=== PATIENT | female | born 1955 | race Caucasian/White ===

== ENCOUNTER 2022-08-01 09:55 | Emergency (ER) | payer OTHER ==
--- OUTSIDE RECORDS SUMMARY | 2022-08-01 10:03 | XMS REPORT | Continuity of Care Document ---
:1955 Author Organization [facility] t Address [address] [place] [address] [address] [place] [address] Care Team Providers Name Role Phone KENYATTA MATIAS Primary Care Physician Unavailable KENYATTA MATIAS Attending Clinician Unavailable GAGANDEEP CORLEY Attending Clinician Unavailable AMARIS RAY Attending Clinician Unavailable UNKNOWN, ATTENDING Attending Clinician Unavailable FOG_Halamicek_Mar_NP Attending Clinician Unavailable Kenyatta Watson Attending Clinician Anneliese Rowe MD Attending Clinician DONG ESTRADA Attending Clinician Unavailable Jade Macias PT Attending Clinician Unavailable Dong Estrada MD Attending Clinician Azalia Aguero PTA Attending Clinician Unavailable Doctor Unassigned, [place] Attending Clinician Unavailable Arnaud Pardo Attending Clinician ARNAUD HEAD Attending Clinician Unavailable Lab, Ang - Db Attending Clinician Unavailable Geraldine Weller MD Attending Clinician Higinio Ward RN Attending Clinician Unavailable NANDO ROMERO Attending Clinician Unavailable GONZALO PIERSON Attending Clinician Unavailable MARISOL PAEZ Attending Clinician Unavailable VERONICA JAY III Attending Clinician Unavailable Veronica Jay MD Attending Clinician GONZALO PIERSON Attending Clinician Unavailable TESS BOGGS Attending Clinician Unavailable LINDA IVEY Attending Clinician Unavailable YAN POWELL Attending Clinician Unavailable DAVE WEIR Attending Clinician Unavailable GAUTAM DOMINGUEZ Attending Clinician Unavailable JESIKA MORIN Attending Clinician Unavailable SAMANTHA CLARKE Attending Clinician Unavailable MONSE CR Attending Clinician Unavailable DHIRAJ GREENWOOD Attending Clinician Unavailable ROB LAYTON Attending Clinician Unavailable BIBIANA LUU Attending Clinician Unavailable ABEL STAUFFER Attending Clinician Unavailable YASIR MCGEE Attending Clinician Unavailable FOG_Halamicek_Mar_NP Admitting Clinician Unavailable GONZALO PIERSON Admitting Clinician Unavailable Payers Payer Name Policy Type Policy Number Effective Date [facility]piration Date [facility] [id number] 0631-10-27 2021 ASSISTANCE PROGRAM 00:00:00 00:00:00 MEDICARE PART A [id number] 2021 \\T\\ B 00:00:00 COMMERCIAL [id number] 2021 NON-CONTRACT 00:00:00 GENERIC MEDICARE PART A [id number] \\T\\ B - MEDICARE MEDIGAP - MUTUAL [id number] OF [place] ZZZ-PPO [id number] 2008 00:00:00 MEDIGAP-GENERIC - [id number] 2020 GENERIC PAYOR 00:00:00 [place] [place] [id number] 2021 2024 00:00:00 00:00:00 MEDICARE B-[place]: [id number] 2021 Vortal 00:00:00 [place] [id number] 2021 (MEDICARE 00:00:00 SUPPLEMENT) COVID19 [facility] [id number] 2020 2020 00:00:00 00:00:00 MEDICARE A B [id number] 2020 00:00:00 SANJEEV [id number] 2021 00:00:00 [place] [id number] [id number] 2021 PLANNING INDIGENT 00:00:00 00:00:00 Problems Condition Condition Condition Status Onset Resolution Last Treating Co mments Source Name Details Category Date Date Treatment Clinician Date Acute pain Acute pain Disease Active U nivers of right of right 2-15 ity of shoulder shoulder 00:00: [place] 00 Medical Branch Need for Need for Disease Active Unive rs hepatitis hepatitis 12 ity of C C 00:00: [place] screening screening 00 [facility] test test Branch Encounter Encounter Disease Active Uni vers to to 02-08 ity of establish establish 00:00: [facility] care care 00 Medical Branch Cervicalgi Cervicalgi Disease Active U nivers a a 07 ity of 00:00: [place] 00 Medical Branch Chronic Chronic Disease Active Univers left left 02-08 ity of shoulder shoulder 00:00: [place] pain pain 00 Medical Branch Parathyroi Parathyroi Disease Active U nivers d disease d disease 02-08 ity of 00:00: [place] 00 Medical Branch Psoriatic Psoriatic Disease Active Uni vers arthritis arthritis 02-08 ity of 00:00: [place] 00 Medical Branch Status Status Disease Active [facility] post post 1-10 College parathyroi parathyroi 00:00: of dectomy dectomy 00 Medicin e Primary Primary Disease Active 2020-[address] [facility] hyperparat hyperparat 2-28 Heidi kes hyroidism hyroidism 00:00: [facility] ian 00 Center Primary Primary Disease Active 2020-06 [facility] hyperparat hyperparat 2-08 Co llege hyroidism hyroidism 00:00: of 00 Medicin e Arthritis Arthritis Disease Active 2020-06 [facility] 2-08 College 00:00: of 00 Medicin e Osteoporos Osteoporos Disease Active 2020-06 B julius is with is with 2-08 College current current 00:00: of pathologic pathologic 00 Me dicin al al e fracture fracture Renal Renal Disease Active [facility] stone stone 6-09 Health 00:00: 00 Chronic Chronic Disease Active [facility] pain of pain of 5-17 Health right knee right knee 00:00: 00 Weakness Weakness Disease Active Harri s of lower of lower -17 Health extremity extremity 00:00: 00 Impaired Impaired Disease Active [facility] mobility mobility -17 Health 00:00: 00 Post-menop Post-menop Disease Active H arris ausal ausal 03 Health osteoporos osteoporos 00:00: is is 00 Kidney Kidney Disease Active 2017-06 Overview: Alvin stone stone 2-19 [facility] 00:00: g of this 00 note might be different from the original. Added automatic ally from request for surgery [id number] Encounter Encounter Disease Active 2017-06 César ris for for 07-02 Health methotrexa methotrexa 00:00: te te 00 monitoring monitoring Cervical Cervical Disease Active Harri s radiculopa radiculopa 09-20 He alth thy at C8 thy at C8 00:00: 00 Neck pain Neck pain Disease Active César ris 08-30 Health 00:00: 00 Anxiety Anxiety Disease Active 2015-06 Alvin 06-06 Health 00:00: 00 Fracture Fracture Disease Active Harri s of distal of distal 5-14 Heal th femur femur 00:00: 00 Osteoarthr Osteoarthr Disease Recurre Alvin itis itis nce 6-13 Health 00:00: 00 Psoriatic Psoriatic Disease Recurre Le[place] rris arthritis arthritis nce 2-28 Heal th 00:00: 00 Osteoporos Osteoporos Disease Recurre Esquivel is is nce 2-28 Health 00:00: 00 Kidney Kidney Disease Active 2012-06 [facility] stones stones 0-05 College 00:00: of 00 Medicin e Vitamin D Vitamin D Disease Recurre Le[place] rris deficiency deficiency nce 4-25 He alth 00:00: 00 Flank pain Flank pain Disease Active 2010-06 H arris 2-09 Health 00:00: 00 Psoriasis Psoriasis Disease Recurre 2010-06 Le[place] rris nce 0-26 Health 00:00: 00 Depression Depression Disease Recurre 2010-06 [facility] nce 0-26 Health 00:00: 00 Osteoporos Osteoporos Disease Active B aylor is, is, 3-25 College postmenopa postmenopa 00:00: of usal usal 00 Medicin e GYNECOLOGI GYNECOLOGI Disease Active 2007-06 B ayanthony IAN IAN 2-23 [place] EXAMINATIO EXAMINATIO 00:00: of N, ROUTINE N, ROUTINE 00 Me dicin e SCREENING SCREENING Disease Active 2006-06 [place] anthony MAMMOGRAM MAMMOGRAM 06-18 Kandy ege NEC NEC 00:00: of 00 Medicin e SCREENING SCREENING Disease Active 2006-06 [place] anthony FOR FOR 06-18 College MALIGNANT MALIGNANT 00:00: of NEOPLASM, NEOPLASM, 00 Medi zeeshan CERVIX CERVIX e VAGINAL VAGINAL Disease Active 2006-06 [facility] BLEEDING, BLEEDING, 06-18 Kandy ege ABNORMAL ABNORMAL 00:00: of 00 Medicin e Acute left Acute left Disease Active H arris flank pain flank pain He alth Hydronephr Hydronephr Disease Active H arris osis with osis with Heal th urinary urinary obstructio obstructio n due to n due to renal renal calculus calculus Allergies, Adverse Reactions, Alerts Allergy Allergy Status Severity Reaction(s) Onset Inactive Treating Comm ents Source Name Type Date Date Clinician ALENDRON DRUG Active High Hives Univers ATE-BRYANT 7-20 ity of MIN D3 00:00: [place] 00 [facility] HYDROXYC DRUG Active High Hives Univers HLOROQUI INGREDI 7-20 ity of NE 00:00: [place] 00 [facility] Alendron Propensi Active Hives Univer s ate-Bryant ty to 7-20 ity of min D3 adverse 00:00: [place] reaction 00 [facility] Hydroxyc Propensi Active Hives Univer s hloroqui ty to 7-20 ity of ne adverse 00:00: [place] reaction 00 [facility] Branch HYDROXYC Allergy Active High Hives 2020-[address] [facility]OQUI 2-27 [facility] CODEINE Allergy Active Nausea 2020-[address] [facility] [address] 2-27 [facility] 00:[facility] Medical 00 Center Codeine Propensi Active Nausea Only 2020-[address] ty to 2-27 [facility] adverse 00:00: Medical reaction 00 [place] [facility] Hydroxyc Propensi Active Hives, 2020-[address] [facility] hloroqui ty to Swelling 2-27 [facility] ne adverse 00:00: Medical reaction 00 [place] [facility] Codeine Propensi Active Itching Upset [facility] Hcl ty to 8 stomach Health adverse 00:00: reaction 00 s to drug Hydroxyc Propensi Active Angioedema, 2010-06 H arris hloroqui ty to Swelling 0-26 Health ne adverse 00:00: reaction 00 s to drug Ge Propensi Active 2006-06 PLAQUENIL [employer] Uncoded ty to 115 . College Allergy adverse 00:00: SHOCKlip of reaction 00 swelling Medici n s e Family History Family Member Diagnosis Comments Start Date Stop Date Source Natural brother Cancer [facility] He alth Natural father Heart [facility]a l[facility] Natural mother Arthritis [facility] Natural mother Hypertension [facility] Natural mother Other [facility] Natural sister Hypertension [facility] Social History Social Habit Start Date Stop Date Quantity Comments Source History SDOH IPV [facility] Sexual Abuse History SDOH IPV [facility] Fear History SDOH IPV [facility] Emotional History SDOH [facility] Drinks History SDOH [facility] Alcohol Binge Medical [facility] Exposure to 2022-07-09 2022-07-19 Not sure [facility] SARS-CoV-2 00:00:00 08:34:00 [place] Medical (event) Branch Tobacco use and 2021-05-30 2021-05-[address] [facility] Heidi kes exposure 00:00:00 00:00:00 Medical Center History SDOH 2021-05-30 2021-05-[address] [facility] Alcohol Frequency 00:00:00 00:00:00 Medical Center Alcohol intake 2021-04-25 2021-04-25 Current drinker [facility] 00:00:00 00:00:00 of alcohol (finding) History SDOH IPV 2020-11-10 2020-11-10 2 [facility] Physical Abuse 00:00:00 00:00:00 History SDOH Food 2018-06-27 2018-06-27 1 [facility] Health Worry 00:00:00 00:00:00 History SDOH Food 2018-06-27 2018-06-27 1 [facility] Health Scarcity 00:00:00 00:00:00 Alcohol Comment 2011-03-29 2011-03-29 Very rarely (<1 [facility] is Health 00:00:00 00:00:00 drink per year) Sex Ass[birth year] At 1955-05-211956-05-21 Alvin loya 00:00:00 00:00:00 Smoking Status Start Date Stop Date Source Tobacco smoking consumption [facility] Medical unknown Branch Never smoked tobacco [facility] Medications Ordered Filled Start Stop Current Ordering Indication Dosage Frequency Signature Comments Components Source Medication Medication Date Date Medication? Clinician (SIG) Name Name methylPREDN 2023-0 Yes [id number] Take by Univers ISolone 2-15 mouth ity of (MEDROL, 00:00: SEE-INSTRU Ger[place] as AASHISH,) 4 mg 00 CTIONS. Medica l tablets follow Branch package directions tiZANidine 2023-0 Yes [id number] 2mg Take 1 U nivers 2 mg 2-15 capsule by ity of capsule 00:00: mouth in [place] the Medical morning Branch and 1 capsule at noon and 1 capsule in the evening. methylPREDN 2023-0 Yes [id number] Take by Univers ISolone 2-15 mouth ity of (MEDROL, 00:00: SEE-INSTRU Gerhard as AASHISH,) 4 mg 00 CTIONS. Medica l tablets follow Branch package directions tiZANidine 2023-0 Yes [id number] 2mg Take 1 U nivers 2 mg 2-15 capsule by ity of capsule 00:00: mouth in [place] [address] the Medical morning Branch and 1 capsule at noon and 1 capsule in the evening. methylPREDN 2023-0 Yes [id number] Take by Univers ISolone 2-15 mouth ity of (MEDROL, 00:00: SEE-INSTRU Ger[place] as AASHISH,) 4 mg 00 CTIONS. Medica l tablets follow Branch package directions tiZANidine 2023-0 Yes [id number] 2mg Take 1 U nivers 2 mg 2-15 capsule by ity of capsule 00:00: mouth in [place] [address] the Medical morning Branch and 1 capsule at noon and 1 capsule in the evening. methylPREDN 2023-0 Yes [id number] Take by Univers ISolone 2-15 mouth ity of (MEDROL, 00:00: SEE-INSTRU Ger[place] as AASHISH,) 4 mg 00 CTIONS. Medica l tablets follow Branch package directions tiZANidine 2023-0 Yes [id number] 2mg Take 1 U nivers 2 mg 2-15 capsule by ity of capsule 00:00: mouth in [place] [address] the Medical morning Branch and 1 capsule at noon and 1 capsule in the evening. methylPREDN 2022-0 2022- No [id number] Take by Univers ISolone 2-15 02-15 mouth ity of (MEDROL, 00:00: 00:[place] AASHISH[place] 4 mg 00 :00 CTIONS for Med ical tablets 5 days. Branch follow package directions tiZANidine 2022-0 2022- No [id number] 2mg Take 1 Univers 2 mg 2-15 02-15 capsule by ity of capsule 00:00: 00:00 mouth in [place] 00 :00 the Medical morning Branch and 1 capsule at noon and 1 capsule in the evening. tiZANidine 2022-0 3- No [id number] 2mg Take 1 Univers 2 mg 2-15 02-15 capsule by ity of capsule 00:00: 00:00 mouth in [place] 00 :00 the Medical morning Branch and 1 capsule at noon and 1 capsule in the evening. methylPREDN 2022-0 2022- No [id number] Take by Univers ISolone 2-15 02-15 mouth ity of (MEDROL, 00:00: 00:[place] AASH[place] 4 mg 00 :00 CTIONS. Medica l tablets follow Branch package directions methylPREDN 2022-0 2022- No [id number] Take by [employer] ISolone 2-15 02-15 mouth ity of (MEDROL, 00:00: 00:[place] AASHISH[place] 4 mg 00 :00 CTIONS for Med ical tablets 5 days. Branch follow package directions tiZANidine 3-0 2022- No [id number] 2mg Take 1 Univers 2 mg 2-15 02-15 capsule by ity of capsule 00:00: 00:00 mouth in [place] 00 :00 the Medical morning Branch and 1 capsule at noon and 1 capsule in the evening. tiZANidine 2023-0 2023- No [id number] 2mg Take 1 Univers 2 mg 2-15 02-15 capsule by ity of capsule 00:00: 00:00 mouth in [place] 00 :00 the Medical morning Branch and 1 capsule at noon and 1 capsule in the evening. methylPREDN 2022-0 2022- No [id number] Take by Univers ISolone 2-15 02-15 mouth ity of (MEDROL, 00:00: 00:00 [place] AASHISH[place] 4 mg 00 :00 CTIONS. Medica l tablets follow Branch package directions Apremilast Yes 30mg Take 30 mg B aylor (OTEZLA) 30 1-24 by mouth [place] e[place] MG TABS 10:36: two times of 27 daily. Medicin e Multiple Yes Take by [facility] Vitamins-Mi 1-24 mouth. Nuzhat uribe nerals 10:36: of (MULTIPLE 27 Medicin VITAMINS/WO e MENS OR) Calcium-Mag Yes Take by [facility] nesium-Bryant 1-24 mouth. Nuzhat e min D 10:36: of (CITRACAL 27 Medicin CALCIUM+D e OR) Naproxen Yes 1{tbl} Take 1 [facility] Sodium 220 1-24 Tablet by [place] MG TABS 10:36: mouth as of 27 needed. Medicin e ciprofloxac Yes [id number] 2[drp] Place 2 Univers in HCl 0.3 9-23 [id number] Drops in ity of % opthalmic 00:00: both eyes [place] drops 00 every 4 Medical (four) Branch hours. ciprofloxac Yes [id number] 2[drp] Place 2 Univers in HCl 0.3 9-23 [id number] Drops in ity of % opthalmic 00:00: both eyes [place] drops 00 every 4 Medical (four) Branch hours. ciprofloxac Yes [id number] 2[drp] Place 2 Univers in HCl 0.3 9-23 [id number] Drops in ity of % opthalmic 00:00: both eyes [place] drops 00 every 4 Medical (four) Branch hours. ciprofloxac Yes [id number] 2[drp] Place 2 Univers in HCl 0.3 9-23 [id number] Drops in ity of % opthalmic 00:00: both eyes [place] drops 00 every 4 Medical (four) Branch hours. ciprofloxac Yes [id number] 2[drp] Place 2 Univers in HCl 0.3 9-23 [id number] Drops in ity of % opthalmic 00:00: both eyes [place] drops 00 every 4 Medical (four) Branch hours. ciprofloxac Yes [id number] 2[drp] Place 2 Univers in HCl 0.3 9-23 [id number] Drops in ity of % opthalmic 00:00: both eyes [place] drops 00 every 4 Medical (four) Branch hours. ciprofloxac Yes [id number] 2[drp] Place 2 Univers in HCl 0.3 9-23 [id number] Drops in ity of % opthalmic 00:00: both eyes [place] drops 00 every 4 Medical (four) Branch hours. ciprofloxac Yes [id number] 2[drp] Place 2 Univers in HCl 0.3 9-23 [id number] Drops in ity of % opthalmic 00:00: both eyes [place] drops 00 every 4 Medical (four) Branch hours. ciprofloxac Yes [id number] 2[drp] Place 2 Univers in HCl 0.3 9-23 [id number] Drops in ity of % opthalmic 00:00: both eyes [place] drops 00 every 4 Medical (four) Branch hours. ciprofloxac 2022- No [id number] 2[drp] Place 2 Univers in HCl 0.3 9-23 02-15 [id number] Drops in it y of % opthalmic 00:00: 00:00 both eyes [place] drops 00 :00 every 4 Medical (four) Branch hours. ciprofloxac 2022- No [id number] 2[drp] Place 2 Univers in HCl 0.3 9-23 02-15 [id number] Drops in it y of % opthalmic 00:00: 00:00 both eyes [place] drops 00 :00 every 4 Medical (four) Branch hours. ciprofloxac 2021- No [id number] 2[drp] Place 2 Univers in HCl 0.3 9-23 09-23 [id number] Drops in it y of % opthalmic 00:00: 00:00 both eyes [place] drops 00 :00 every 4 Medical (four) Branch hours for 7 days. Apremilast Yes 30mg Take 30 mg B aylor (OTEZLA) 30 7-26 by mouth Kandy ege MG TABS 12:58: two times of 43 daily. Medicin e Multiple Yes Take by [facility] Vitamins-Mi 7- mouth. Colleg e nerals 12:58: of (MULTIPLE 27 Medicin VITAMINS/WO e MENS OR) Calcium-Mag 0 Yes Take by [place] anthony nesium-Bryant 7- mouth. Colleg e min D 12:58: of (CITRACAL 27 Medicin CALCIUM+D e OR) Naproxen Yes 1{tbl} Take 1 [facility] Sodium 220 7-26 Tablet by Kandy ege MG TABS 12:58: mouth as of 27 needed. Medicin e Apremilast Yes 30mg Take 30 mg B ayl[place] (OTEZLA) 30 7- by mouth [place]andy ege MG TABS 10:52: two times of 17 daily. Medicin e Multiple Yes Take by [facility] Vitamins-Mi 7- mouth. Colleg e nerals 10:52: of (MULTIPLE 17 Medicin VITAMINS/WO e MENS OR) Calcium-Mag Yes Take by [place] anthony nesium-Bryant 7- mouth. Colleg e min D 10:52: of (CITRACAL 17 Medicin CALCIUM+D e OR) Naproxen Yes 1{tbl} Take 1 [facility] Sodium 220 7-26 Tablet by Kandy ege MG TABS 10:52: mouth as of 17 needed. Medicin e Apremilast Yes As [facility] 10 & 20 & 7-26 instructed Kandy ege 30 MG TBPK 00:00: of 00 Medicin e Apremilast 0 Yes As [facility] 10 & 20 & 7-26 instructed Kandy ege 30 MG TBPK 00:00: of 00 Medicin e bromphenira Yes [id number] 5mL Take 5 mL Univers mine-pseudo 7-20 by mouth 4 it y of ephedrine-D 00:00: (four[place] M (BROMFED 00 times Medical DM) 2-30-10 daily as Bran ch mg/5 mL needed for syrup Congestion /Allergies or Cough. fluticasone Yes [id number] 2{spray Use 2 Univers propionate 7-20 } Sprays in ity of 50 00:00: each [place] mcg/actuati 00 nostril in Me dical on nasal the Branch spray morning. bromphenira 2021-0 Yes [id number] 5mL Take 5 mL Univers mine-pseudo 7-20 by mouth 4 it y of ephedrine-D 00:00: (four[place] M (BROMFED 00 times Medical DM) 2-30-10 daily as Bran ch mg/5 mL needed for syrup Congestion /Allergies or Cough. fluticasone 2021-0 Yes [id number] 2{spray Use 2 Univers propionate 7-20 } Sprays in ity of 50 00:00: each [place] mcg/actuati 00 nostril in Me dical on nasal the Branch spray morning. bromphenira 2021-0 Yes [id number] 5mL Take 5 mL Univers mine-pseudo 7-20 by mouth 4 it y of ephedrine-D 00:00: (four[place] M (BROMFED 00 times Medical DM) 2-30-10 daily as Bran ch mg/5 mL needed for syrup Congestion /Allergies or Cough. fluticasone 2021-0 Yes [id number] 2{spray Use 2 Univers propionate 7-20 } Sprays in ity of 50 00:00: each [place] mcg/actuati 00 nostril in Me dical on nasal the Branch spray morning. bromphenira 2021-0 Yes [id number] 5mL Take 5 mL Univers mine-pseudo 7-20 by mouth 4 it y of ephedrine-D 00:00: (four[place] M (BROMFED 00 times Medical DM) 2-30-10 daily as Bran ch mg/5 mL needed for syrup Congestion /Allergies or Cough. fluticasone 2021-0 Yes [id number] 2{spray Use 2 Univers propionate 7-20 } Sprays in ity of 50 00:00: each [place] mcg/actuati 00 nostril in Me dical on nasal the Branch spray morning. bromphenira 2021-0 Yes [id number] 5mL Take 5 mL Univers mine-pseudo 7-20 by mouth 4 it y of ephedrine-D 00:00: (four) [place] M (BROMFED 00 times Medical DM) 2-30-10 daily as Bran ch mg/5 mL needed for syrup Congestion /Allergies or Cough. fluticasone 2021-0 Yes [id number] 2{spray Use 2 Univers propionate 7-20 } Sprays in ity of 50 00:00: each [place] mcg/actuati 00 nostril in Me dical on nasal the Branch spray morning. bromphenira 2021-0 Yes [id number] 5mL Take 5 mL Univers mine-pseudo 7-20 by mouth 4 it y of ephedrine-D 00:00: (four) [place] M (BROMFED 00 times Medical DM) 2-30-10 daily as Bran ch mg/5 mL needed for syrup Congestion /Allergies or Cough. fluticasone 2021-0 Yes [id number] 2{spray Use 2 Univers propionate 7-20 } Sprays in ity of 50 00:00: each [place] mcg/actuati 00 nostril in Me dical on nasal the Branch spray morning. bromphenira 2021-0 Yes [id number] 5mL Take 5 mL Univers mine-pseudo 7-20 by mouth 4 it y of ephedrine-D 00:00: (four[place] M (BROMFED 00 times Medical DM) 2-30-10 daily as Bran ch mg/5 mL needed for syrup Congestion /Allergies or Cough. fluticasone 2021-0 Yes [id number] 2{spray Use 2 Univers propionate 7-20 } Sprays in ity of 50 00:00: each [place] mcg/actuati 00 nostril in Me dical on nasal the Branch spray morning. bromphenira 2021-0 Yes [id number] 5mL Take 5 mL Univers mine-pseudo 7-20 by mouth 4 it y of ephedrine-D 00:00: (four) [place] M (BROMFED 00 times Medical DM) 2-30-10 daily as Bran ch mg/5 mL needed for syrup Congestion /Allergies or Cough. fluticasone 2021-0 Yes [id number] 2{spray Use 2 Univers propionate 7-20 } Sprays in ity of 50 00:00: each [place] mcg/actuati 00 nostril in Me dical on nasal the Branch spray morning. bromphenira 2021-0 Yes [id number] 5mL Take 5 mL Univers mine-pseudo 7-20 by mouth 4 it y of ephedrine-D 00:00: (four) [place] M (BROMFED 00 times Medical DM) 2-30-10 daily as Bran ch mg/5 mL needed for syrup Congestion /Allergies or Cough. fluticasone 0 Yes [id number] 2{spray Use 2 Univers propionate 7-20 } Sprays in ity of 50 00:00: each [place] mcg/actuati 00 nostril in Me dical on nasal the Branch spray morning. bromphenira 0 Yes [id number] 5mL Take 5 mL Univers mine-pseudo 7-20 by mouth 4 it y of ephedrine-D 00:00: (four) [place] M (BROMFED 00 times Medical DM) 2-30-10 daily as Bran ch mg/5 mL needed for syrup Congestion /Allergies or Cough. fluticasone Yes [id number] 2{spray Use 2 Univers propionate 7-20 } Sprays in ity of 50 00:00: each [place] mcg/actuati 00 nostril in Me dical on nasal the Branch spray morning. bromphenira Yes [id number] 5mL Take 5 mL Univers mine-pseudo 7-20 by mouth 4 it y of ephedrine-D 00:00: (four[place] M (BROMFED 00 times Medical DM) 2-30-10 daily as Bran ch mg/5 mL needed for syrup Congestion /Allergies or Cough. fluticasone Yes [id number] 2{spray Use 2 Univers propionate 7-20 } Sprays in ity of 50 00:00: each [place] mcg/actuati 00 nostril in Me dical on nasal the Branch spray morning. bromphenira 2022- No [id number] 5mL Take 5 mL Univers mine-pseudo 7-20 02-15 by mouth 4 i ty of ephedrine-D 00:00: 00:00 (four) [place] M (BROMFED 00 :00 times Medical DM) 2-30-10 daily as Bran ch mg/5 mL needed for syrup Congestion /Allergies or Cough. fluticasone 0 2022- No [id number] 2{spray Use 2 Univers propionate 7-20 02-15 } Sprays in ity of 50 00:00: 00:00 each [place] mcg/actuati 00 :00 nostril in Me dical on nasal the Branch spray morning. bromphenira 2022- No [id number] 5mL Take 5 mL Univers mine-pseudo 12-21 by mouth 4 i ty of ephedrine-D 00:00: 00:00 (four) [place] M (BROMFED 00 :00 times Medical DM) 2-30-10 daily as Bran ch mg/5 mL needed for syrup Congestion /Allergies or Cough. fluticasone 2022- No [id number] 2{spray Use 2 Univers propionate 12-21 } Sprays in ity of 50 00:00: 00:00 each [place] mcg/actuati 00 :00 nostril in Me dical on nasal the Branch spray morning. Naproxen Yes 1{tbl} Take 1 [facility] Sodium 4-25 Tablet by [place] (NOLVIA) 220 09:22: mouth as of MG TABS 52 needed. Medicin e Apremilast Yes 30mg Take 30 mg B ayl[place] (OTEZLA) 30 4-25 by mouth [place]andy ege MG TABS 09:22: two times of 20 daily. Medicin e Multiple Yes Take by [facility] Vitamins-Mi 4-25 mouth. Nuzhat e nerals 09:22: of (MULTIPLE 20 Medicin VITAMINS/WO e MENS OR) Calcium-Mag Yes Take by [facility] nesium-Bryant 4-25 mouth. Nuzhat e min D 09:22: of (CITRACAL 20 Medicin CALCIUM+D e OR) Apremilast Yes 30mg Take 30 mg [facility] (OTEZLA) 30 1-31 by mouth Kandy ege MG TABS 09:27: two times of 25 daily. Medicin e Apremilast 0 Yes 30mg Take 30 mg [facility] (OTEZLA) 30 1-31 by mouth K[facility] e[facility] MG TABS 09:27: two times of 25 daily. Medicin e Apremilast 0 Yes 30mg Take 30 mg [facility] (OTEZLA) 30 1-10 by mouth Akndy ege MG TABS 11:19: two times of 41 daily. Medicin e Apremilast 0 Yes 30mg Take 30 mg [facility] (OTEZLA) 30 1-10 by mouth Kandy ege MG TABS 11:19: two times of 41 daily. Medicin e apremilast 2020-06 Yes Q.5D Take by [facility] (Otezla[facility] 30 2-29 mouth 2 [facility] Tab 17:17: (two) Medical 01 times Center daily. calcium 2020-06 Yes Take [address] [facility] carbonate 2-28 mg or 600 [facility] (OS-IAN) 00:00: mg calcium Med ical 600 mg 00 tablet Center calcium twice (1,500 mg) daily. TO Tab BE PICKED UP OVER THE COUNTER. THIS IS NOT A PRESCRIPTI ON.. tramadol 2020-06- No 1{tbl} Take 1 [facility] (ULTRAM) 50 -06-16 Tablet by [facility] llege MG tablet 00:00: 00:00 mouth of 00 :00 every 6 Medicin hours as e needed for Pain. ondansetron 2020-06- No 8mg 1 Tablet [facility] (ZOFRAN 08-01 every 8 College ODT) 8 mg 00:00: 00:00 hours as of disintegrat 00 :00 needed for Me dicin ing tablet Nausea. e tramadol 2020-06- No 1{tbl} Take 1 [facility] (ULTRAM) 50 -06-16 Tablet by Co llege MG tablet 00:00: 00:00 mouth of 00 :00 every 6 Medicin hours as e needed for Pain. ondansetron 2020-06- No 8mg 1 Tablet [facility] (ZOFRAN 08-01 every 8 College ODT) 8 mg 00:00: 00:00 hours as of disintegrat 00 :00 needed for Me dicin ing tablet Nausea. e traMADoL 2020-06 Yes Renal stone 50mg Take 1 [facility] (ULTRAM) 50 1-22 tablet by [facility] mg tablet 00:00: mouth 00 every 6 hours as needed for Pain. betamethaso 2020-06 Yes Fissure in Q.5D Apply to [facility] ne, 1-11 skin affected Health augmented 00:00: area 2 (DIPROLENE) 00 times 0.05 % daily. ointment apremilast 2020-06 Yes Psoriatic 30mg Q.5D Take 1 [facility] (OTEZLA) 30 0-15 arthritis tablet by Health mg tablet 00:00: mouth 2 00 times daily. apremilast 2020-06 Yes 15mg Take 15 mg U nivers 30 mg 0-15 by mouth ity of tablet 00:00: in the [place] morning Medical and 15 mg Branch in the evening. apremilast 2020-06 Yes 15mg Take 15 mg U nivers 30 mg 0-15 by mouth ity of tablet 00:00: in the [place] morning Medical and 15 mg Branch in the evening. apremilast 2020-06 Yes 15mg Take 15 mg U nivers 30 mg 0-15 by mouth ity of tablet 00:00: in the [place] morning Medical and 15 mg Branch in the evening. apremilast 2020-06 Yes 15mg Take 15 mg U nivers 30 mg 0-15 by mouth ity of tablet 00:00: in the [place] morning Medical and 15 mg Branch in the evening. apremilast 2020-06 Yes 15mg Take 15 mg U nivers 30 mg 0-15 by mouth ity of tablet 00:00: in the [place] morning Medical and 15 mg Branch in the evening. apremilast 2020-06 Yes 15mg Take 15 mg U nivers 30 mg 0-15 by mouth ity of tablet 00:00: in the [place] morning Medical and 15 mg Branch in the evening. apremilast 2020-06 Yes 15mg Take 15 mg U nivers 30 mg 0-15 by mouth ity of tablet 00:00: in the [place] morning Medical and 15 mg Branch in the evening. apremilast 2020-06 Yes 15mg Take 15 mg U nivers 30 mg 0-15 by mouth ity of tablet 00:00: in the [place] morning Medical and 15 mg Branch in the evening. apremilast 2020-06 Yes 15mg Take 15 mg U nivers 30 mg 0-15 by mouth ity of tablet 00:00: in the [place] morning Medical and 15 mg Branch in the evening. apremilast 2020-06 Yes 15mg Take 15 mg U nivers 30 mg 0-15 by mouth ity of tablet 00:00: in the [place] morning Medical and 15 mg Branch in the evening. apremilast 2020-06 Yes 15mg Take 15 mg U nivers 30 mg 0-15 by mouth ity of tablet 00:00: in the [place] morning Medical and 15 mg Branch in the evening. apremilast 2020-06 Yes 15mg Take 15 mg U nivers 30 mg 0-15 by mouth ity of tablet 00:00: in the [place] morning Medical and 15 mg Branch in the evening. apremilast 2020-06 Yes 15mg Take 15 mg U nivers 30 mg 0-15 by mouth ity of tablet 00:00: in the [place] morning Medical and 15 mg Branch in the evening. apremilast 2020-06 Yes 15mg Take 15 mg U nivers 30 mg 0-15 by mouth ity of tablet 00:00: in the [place] morning Medical and 15 mg Branch in the evening. apremilast 2020-06 Yes 15mg Take 15 mg U nivers 30 mg 0-15 by mouth ity of tablet 00:00: in the [place] morning Medical and 15 mg Branch in the evening. multivitami Yes 1{tbl} QD Take 1 León rris n tablet 8-23 tablet by [facility] 11:01: mouth 24 daily. CALCIUM Yes 1{tbl} Take 1 [facility] CARBONATE/V 8-23 tablet by [facility] ITAMIN D3 11:01: mouth 3 (CALCIUM 24 times 500 WITH D daily. OR) tamsulosin Yes Nephrolithi .4mg QD Take 1 [facility] (FLOMAX) 6-29 asis capsule by [facility] 0.4 mg 00:00: mouth extended 00 daily. release capsule polyethylen Yes [facility] Empty the [facility] e glycol 11-02 maintenance [facility] (MOVIPREP) 00:00: of 1 Pouch 100-7.5-2.6 00 A and 1 91 gram Pouch B PwPk kit into the container that comes with MoviPrep. Add lukewarm water to the Fill Line on the container. Drink as directed by your doctor.. lidocaine Yes Chronic 1{patch QD Apply 1 [facility] (LIDODERM) 3-12 pain of } Patch to He alth 5 % patch 00:00: right knee skin as 00 directed daily Leave patch(es) on for up to 12 hours, then 12 hours off.. polyethylen Yes Positive Add León rris e glycol 9-27 fecal [employer]) 00:00: occult drinking [id number] 00 blood test water to .74 -5.86 the fill gram oral xiomara (4 solution liters) and shake. Drink as directed by your doctor.. Magnesium 2021- No 1.745g Take 1.745 [facility] Citrate 6-11 01-13 g by mouth Colle ge 1.745 00:00: 00:00 once for 1 of GM/30ML 00 :00 dose. Take Medici n SOLN day before e xray Magnesium No 1.745g Take 1.745 [facility] Citrate 6-11 01-13 g by mouth Colle ge 1.745 00:00: 00:00 once for 1 of GM/30ML 00 :00 dose. Take Medici n SOLN day before e xray Immunizations Ordered Immunization Filled Immunization Date Status Commen ts Source Name Name Influenza, 2021-03-18 Completed [facility] Vaccine<FLUCELVAX>(Mu 00:00:00 lti-Dose) Pfizer Sars-cov-2 2021-02-25 Completed [facility] Vaccination 00:00:00 SARS-COV-2 COVID-19 2021-02-25 Completed Unive rsity of PFIZER VACCINE 00:00:[address] [facility] SARS-COV-2 COVID-19 2021-02-25 Completed Unive rsity of PFIZER VACCINE 00:00:[address] [facility] Pfizer Sars-cov-2 2020-08-04 Completed [facility] Vaccination 00:00:00 SARS-COV-2 COVID-19 2020-08-04 Completed Unive rsity of PFIZER VACCINE 00:00:[address] [facility] SARS-COV-2 COVID-19 2020-08-04 Completed Unive rsity of PFIZER VACCINE 00:00:[address] [facility] Pfizer Sars-cov-2 2020-06-23 Completed [facility] Vaccination 00:00:00 SARS-COV-2 COVID-19 2020-06-23 Completed Unive rsity of PFIZER VACCINE 00:00:[address] [facility] SARS-COV-2 COVID-19 2020-06-23 Completed Unive rsity of PFIZER VACCINE 00:00:[address] [facility] Influenza, 2019-03-28 Completed [facility] Injectable, 00:00:00 Quadrivalent, Preservative Free Influenza Vaccine, 2018-03-08 Completed [facility] Seasonal, Injectable 00:00:00 Pneumococcal 20 2017-08-01 Completed Universit y of Conjugate, PCV20 00:00:00 [facility] dical (Prevnar 20) Branch Pneumococcal 20 2017-08-01 Completed Universit y of Conjugate, PCV20 00:00:00 [facility] dical (Prevnar 20) Branch Pneumococcal 20 2017-08-01 Completed Universit y of Conjugate, PCV20 00:00:00 [facility] dical (Prevnar 20) Branch Pneumococcal 20 2017-08-01 Completed Universit y of Conjugate, PCV20 00:00:00 [facility] dical (Prevnar 20) Branch Pneumococcal 20 2017-08-01 Completed Universit y of Conjugate, PCV20 00:00:00 [facility] dical (Prevnar 20) Branch Pneumococcal 20 2017-08-01 Completed Universit y of Conjugate, PCV20 00:00:00 [facility] dical (Prevnar 20) Branch Pneumococcal 20 2017-08-01 Completed Universit y of Conjugate, PCV20 00:00:00 [facility] dical (Prevnar 20) Branch Pneumococcal 20 2017-08-01 Completed Universit y of Conjugate, PCV20 00:00:00 [facility] dical (Prevnar 20) Branch Pneumococcal 20 2017-08-01 Completed Universit y of Conjugate, PCV20 00:00:00 [facility] dical (Prevnar 20) Branch Pneumococcal 20 2017-08-01 Completed Universit y of Conjugate, PCV20 00:00:00 [place] [facility] (Prevnar 20) Branch Pneumococcal 20 2017-08-01 Completed Universit y of Conjugate, PCV20 00:00:00 [place] [facility] (Prevnar 20) Branch Pneumococcal 20 2017-08-01 Completed Universit y of Conjugate, PCV20 00:00:00 [place] [facility] (Prevnar 20) Branch Pneumococcal 20 2017-08-01 Completed Universit y of Conjugate, PCV20 00:00:00 [place] [facility] (Prevnar 20) Branch Pneumococcal 20 2017-08-01 Completed Universit y of Conjugate, PCV20 00:00:00 [place] [facility] (Prevnar 20) Branch Pneumococcal 20 2017-08-01 Completed Universit y of Conjugate, PCV20 00:00:00 [place] [facility] (Prevnar 20) Branch PPV 23 (Pneumococcal 2017-07-10 Completed [facility] Polysaccharide 23 00:00:00 Valent) Influenza Vaccine, 2017-05-18 Completed [facility] Seasonal, Injectable 00:00:00 Pneumococcal 13 2017-03-14 Completed Universit y of Conjugate, PCV13 00:00:00 [place] [facility] (Prevnar 13) Branch Pneumococcal 13 2017-03-14 Completed Universit y of Conjugate, PCV13 00:00:00 [place] [facility] (Prevnar 13) Branch Pneumococcal 13 2017-03-14 Completed Universit y of Conjugate, PCV13 00:00:00 [place] [facility] (Prevnar 13) Branch Pneumococcal 13 2017-03-14 Completed Universit y of Conjugate, PCV13 00:00:00 [place] [facility] (Prevnar 13) Branch Pneumococcal 13 2017-03-14 Completed Universit y of Conjugate, PCV13 00:00:00 [place] [facility] (Prevnar 13) Branch Pneumococcal 13 2017-03-14 Completed Universit y of Conjugate, PCV13 00:00:00 [place] [facility] (Prevnar 13) Branch Pneumococcal 13 2017-03-14 Completed Universit y of Conjugate, PCV13 00:00:00 [place] [facility] (Prevnar 13) Branch Pneumococcal 13 2017-03-14 Completed Universit y of Conjugate, PCV13 00:00:00 [place] [facility] (Prevnar 13) Branch Pneumococcal 13 2017-03-14 Completed Universit y of Conjugate, PCV13 00:00:00 [place] [facility] (Prevnar 13) Branch Pneumococcal 13 2017-03-14 Completed Universit y of Conjugate, PCV13 00:00:00 [place] [facility] (Prevnar 13) Branch Pneumococcal 13 2017-03-14 Completed Universit y of Conjugate, PCV13 00:00:00 [place] [facility] (Prevnar 13) Branch Pneumococcal 13 2017-03-14 Completed Universit y of Conjugate, PCV13 00:00:00 [place] [facility] (Prevnar 13) Branch Pneumococcal 13 2017-03-14 Completed Universit y of Conjugate, PCV13 00:00:00 [place] [facility] (Prevnar 13) Branch Pneumococcal 13 2017-03-14 Completed Universit y of Conjugate, PCV13 00:00:00 [place] [facility] (Prevnar 13) Branch Pneumococcal 13 2017-03-14 Completed Universit y of Conjugate, PCV13 00:00:00 [place] [facility] (Prevnar 13) Branch Herpes Zoster Vaccine 2017-03-05 Completed [facility] 00:00:00 PCV 13 (Pneumococcal 2017-03-05 Completed [facility] Conjugated 13 Valent) 00:00:00 Pneumococcal 13 2017-03-05 Completed Universit y of Conjugate, PCV13 00:00:00 [place] [facility] (Prevnar 13) Branch Pneumococcal 13 2017-03-05 Completed Universit y of Conjugate, PCV13 00:00:00 [place] [facility] (Prevnar 13) Branch Pneumococcal 13 2017-03-05 Completed Universit y of Conjugate, PCV13 00:00:00 [place] [facility] (Prevnar 13) Branch Pneumococcal 13 2017-03-05 Completed Universit y of Conjugate, PCV13 00:00:00 [place] [facility] (Prevnar 13) Branch Pneumococcal 13 2017-03-05 Completed Universit y of Conjugate, PCV13 00:00:00 [place] [facility] (Prevnar 13) Branch Pneumococcal 13 2017-03-05 Completed Universit y of Conjugate, PCV13 00:00:00 [place] [facility] (Prevnar 13) Branch Pneumococcal 13 2017-03-05 Completed Universit y of Conjugate, PCV13 00:00:00 [place] [facility] (Prevnar 13) Branch Pneumococcal 13 2017-03-05 Completed Universit y of Conjugate, PCV13 00:00:00 [place] [facility] (Prevnar 13) Branch Pneumococcal 13 2017-03-05 Completed Universit y of Conjugate, PCV13 00:00:00 [place] [facility] (Prevnar 13) Branch Pneumococcal 13 2017-03-05 Completed Universit y of Conjugate, PCV13 00:00:00 [place] [facility] (Prevnar 13) Branch Pneumococcal 13 2017-03-05 Completed Universit y of Conjugate, PCV13 00:00:00 [place] [facility] (Prevnar 13) Branch Pneumococcal 13 2017-03-05 Completed Universit y of Conjugate, PCV13 00:00:00 [place] [facility] (Prevnar 13) Branch Pneumococcal 13 2017-03-05 Completed Universit y of Conjugate, PCV13 00:00:00 [place] [facility] (Prevnar 13) Branch Pneumococcal 13 2017-03-05 Completed Universit y of Conjugate, PCV13 00:00:00 [place] [facility] (Prevnar 13) Branch Pneumococcal 13 2017-03-05 Completed Universit y of Conjugate, PCV13 00:00:00 [facility] (Prevnar 13) [place] Influenza Vaccine 2016-03-28 Completed [facility] 00:00:00 Influenza Vaccine 2015-03-31 Completed [facility] 00:00:00 TDAP 2015-02-03 Completed University of 00:00:00 [facility] TDAP 2015-02-03 Completed University of 00:00:00 [facility] TDAP 2015-02-03 Completed University of 00:00:00 [facility] TDAP 2015-02-03 Completed University of 00:00:00 [facility] TDAP 2015-02-03 Completed University of 00:00:00 [facility] TDAP 2015-02-03 Completed University of 00:00:00 [facility] TDAP 2015-02-03 Completed University of 00:00:00 [facility] TDAP 2015-02-03 Completed University of 00:00:00 [facility] TDAP 2015-02-03 Completed University of 00:00:00 [facility] TDAP 2015-02-03 Completed University of 00:00:00 [facility] TDAP 2015-02-03 Completed University of 00:00:00 [facility] TDAP 2015-02-03 Completed University of 00:00:00 [facility] TDAP 2015-02-03 Completed University of 00:00:00 [facility] TDAP 2015-02-03 Completed University of 00:00:00 [facility] TDAP 2015-02-03 Completed University of 00:00:00 [facility] Tdap Tetanus, 2014-10-15 Completed [facility] diphtheria, acellular 00:00:00 pertussis Vaccine Influenza Vaccine 2014-03-16 Completed [facility] 00:00:00 Influenza Vaccine 2013-04-02 Completed [facility] 00:00:00 PPD 2012-10-01 Completed [facility] 00:00:00 Influenza Vaccine 2012-02-21 Completed [facility] 00:00:00 Tdap Tetanus, 2011-10-18 Completed [facility] diphtheria, acellular 00:00:00 pertussis Vaccine Influenza Vaccine 2011-03-29 Completed [facility] 00:00:00 Influenza, Seasonal, 2010-03-04 Completed [facility] Injectable 00:00:00 Influenza (whole) 2010-03-04 Completed [facility] 00:00:00 of Medicine Influenza (whole) 2010-03-04 Completed [facility] 00:00:00 of Medicine Influenza (whole) 2010-03-04 Completed [facility] 00:00:00 of Medicine Influenza (whole) 2010-03-04 Completed [facility] 00:00:00 of Medicine Influenza (whole) 2010-03-04 Completed [facility] 00:00:00 of Medicine Influenza (whole) 2010-03-04 Completed [facility] 00:00:00 of Medicine Influenza (whole) 2010-03-04 Completed [facility] 00:00:00 of Medicine Influenza (whole) 2010-03-04 Completed [facility] 00:00:00 of Medicine Vital Signs Vital Name Observation Time Observation Value Comments Source Systolic blood 2022-07-19 14:31:00 111 mm[Hg] Univer sity of pressure [facility] Diastolic blood 2022-07-19 14:31:00 72 mm[Hg] Unive rsity of [facility] Heart rate 2022-07-19 14:31:00 73 /min [facility] ty [facility] Body temperature 2022-07-19 14:31:00 36.94 Christina Univ ersity of [facility] Body height 2022-07-19 14:31:00 161.3 cm Universi ty [facility] Body weight 2022-07-19 14:31:00 65.772 kg [facility] ty [facility] BMI 2022-07-19 14:31:00 25.28 kg/m2 [facility] Oxygen saturation in 2022-07-19 14:31:00 97 /min [facility] blood by [facility] Pulse oximetry Branch Systolic blood 2022-06-27 16:39:00 120 mm[Hg] [facility] Medicine Diastolic blood 2022-06-27 16:39:00 64 mm[Hg] [facility] Medicine Heart rate 2022-06-27 16:39:00 61 /min [facility] ollege of Medicine Body height 2022-06-27 16:39:00 162.6 cm [facility] ollege of Medicine Body weight 2022-06-27 16:39:00 67.586 kg [facility] ollege of Medicine BMI 2022-06-27 16:39:00 25.58 kg/m2 [facility] ollege of Medicine Systolic blood 2022-02-24 23:14:00 134 mm[Hg] Univer sity of pressure [place] [facility] Diastolic blood 2022-02-24 23:14:00 81 mm[Hg] Unive rsity of pressure [facility] Heart rate 2022-02-24 23:13:00 70 /min Universi ty [facility] [place] [facility] Body temperature 2022-02-24 23:13:00 36.89 Christina Univ ersity of [place] [facility] Respiratory rate 2022-02-24 23:13:00 18 /min Univ ersity of [place] [facility] Body height 2022-02-24 23:13:00 162.6 cm Universi ty [facility] [place] [facility] Body weight 2022-02-24 23:13:00 65 kg [facility]i [facility] [place] [facility] BMI 2022-02-24 23:13:00 24.60 kg/m2 [facility]i ty [facility] [place] [facility] Oxygen saturation in 2022-02-24 23:13:00 98 /min University of Arterial blood by [place] [employer] [facility] Pulse oximetry Branch Systolic blood 2022-02-13 13:29:00 128 mm[Hg] Univer sity of pressure [facility] Diastolic blood 2022-02-13 13:29:00 75 mm[Hg] Unive rsity of pressure [facility] Heart rate 2022-02-13 13:29:00 73 /min Universi ty [facility] [place] [facility] Body height 2022-02-13 13:29:00 162.6 cm [facility]i [facility] [place] [facility] Body weight 2022-02-13 13:29:00 66.225 kg [facility]i [facility] [place] [facility] BMI 2022-02-13 13:29:00 25.06 kg/m2 [facility] [place] [facility] Oxygen saturation in 2022-02-13 13:29:00 99 /min University of Arterial blood by [place] [employer] [facility] Pulse oximetry Branch Systolic blood 2021-12-27 17:59:00 115 mm[Hg] [facility] pressure Medicine Diastolic blood 2021-12-27 17:59:00 75 mm[Hg] [facility] pressure Medicine Heart rate 2021-12-27 17:59:00 67 /min [facility] Body temperature 2021-12-27 17:59:00 36.22 Christina [facility] Respiratory rate 2021-12-27 17:59:00 16 /min [facility] Body height 2021-12-27 17:59:00 162.6 cm [facility] ollege of [facility] Body weight 2021-12-27 17:59:00 63.05 kg [facility] C ollege of Medicine BMI 2021-12-27 17:59:00 23.86 kg/m2 [facility] ollege of [facility] Oxygen saturation in 2021-12-27 17:59:00 100 /min [facility] blood by [facility] Pulse oximetry Systolic blood 2021-12-27 15:50:00 118 mm[Hg] [facility] Medicine Diastolic blood 2021-12-27 15:50:00 72 mm[Hg] [facility] Medicine Heart rate 2021-12-27 15:50:00 68 /min [facility] ollege of Medicine Respiratory rate 2021-12-27 15:50:00 20 /min [facility] Body height 2021-12-27 15:50:00 162.6 cm [facility] ollege of [facility] Body weight 2021-12-27 15:50:00 63.05 kg [facility] ollege of Medicine BMI 2021-12-27 15:50:00 23.86 kg/m2 [facility] ollege of Medicine Systolic blood 2021-09-26 14:23:00 130 mm[Hg] [facility] Medicine Diastolic blood 2021-09-26 14:23:00 78 mm[Hg] [facility] Medicine Heart rate 2021-09-26 14:23:00 69 /min [facility] ollege of Medicine Respiratory rate 2021-09-26 14:23:00 16 /min [facility] Body height 2021-09-26 14:23:00 162.6 cm [facility] ollege of Medicine Body weight 2021-09-26 14:23:00 64.955 kg [facility] ollege of Medicine BMI 2021-09-26 14:23:00 24.58 kg/m2 [facility] ollege of Medicine Heart rate 2021-07-11 19:57:00 65 /min [facility] ollege of Medicine Respiratory rate 2021-07-11 19:57:00 16 /min [facility] Body height 2021-07-11 19:57:00 162.6 cm [facility] ollege of [facility] Body weight 2021-07-11 19:57:00 64.864 kg [facility] ollege of [facility] BMI 2021-07-11 19:57:00 24.55 kg/m2 [facility] ollege of [facility] Systolic blood 2021-07-11 19:57:00 133 mm[Hg] [facility] Medicine Diastolic blood 2021-07-11 19:57:00 75 mm[Hg] [facility] Medicine Systolic blood 2021-07-04 15:27:00 150 mm[Hg] [facility] Medicine Diastolic blood 2021-07-04 15:27:00 81 mm[Hg] [facility] Medicine Heart rate 2021-07-04 15:27:00 64 /min [facility] ollege of [facility] Body temperature 2021-07-04 15:27:00 36.67 Christina [facility] Respiratory rate 2021-07-04 15:27:00 18 /min [facility] Body height 2021-07-04 15:27:00 162.6 cm [facility] ollege of [facility] Body weight 2021-07-04 15:27:00 64.774 kg [facility] ollege of [facility] BMI 2021-07-04 15:27:00 24.51 [facility] Oxygen saturation in 2021-07-04 15:27:00 99 /min [facility] Arterial blood by [facility] Pulse oximetry Systolic blood 2021-06-16 15:40:00 139 mm[Hg] [facility] Medicine Diastolic blood 2021-06-16 15:40:00 81 mm[Hg] [facility] Medicine Heart rate 2021-06-16 15:40:00 67 /min [facility] ollege of Medicine Body height 2021-06-16 15:40:00 162.6 cm [facility] ollege of Medicine Body weight 2021-06-16 15:40:00 64.411 kg [facility] ollege of Medicine BMI 2021-06-16 15:40:00 24.37 kg/m2 [facility] Systolic blood 2021-06-13 17:14:00 150 mm[Hg] [facility] pressure Medicine Diastolic blood 2021-06-13 17:14:00 86 mm[Hg] [facility] Medicine Heart rate 2021-06-13 17:14:00 74 /min 98% [facility] Body temperature 2021-06-13 17:14:00 36.83 Christina [facility] Respiratory rate 2021-06-13 17:14:00 18 /min [facility] Body weight 2021-06-13 17:14:00 63.322 kg [facility] BMI 2021-06-13 17:14:00 23.96 kg/m2 [facility] WEIGHT 2021-05-31 08:39:00 64.5 kg HEIGHT 2021-05-31 08:39:00 162.6 cm HEIGHT 2021-05-30 13:46:00 161.3 cm WEIGHT 2021-05-30 13:46:00 62.596 kg WEIGHT 2021-05-31 08:39:00 64.5 kg HEIGHT 2021-05-31 08:39:00 162.6 cm HEIGHT 2021-05-30 13:46:00 161.3 cm WEIGHT 2021-05-30 13:46:00 62.596 kg Procedures Procedure Date / Time Performed Performing Clinician [facility] e CONSENT/REFUSAL FOR 2022-02-28 05:01:00 Doctor Unassigned, No Un [facility] DIAGNOSIS AND Name [facility] TREATMENT CBC WITH DIFF 2022-02-13 14:36:00 Kenyatta Matias [place] [facility] [place] [facility] POCT URINALYSIS 2021-06-16 00:00:00 Nando Romero [facility] randae of DIPSTICK Medicine Plan of Care Planned Activity Planned Date Details Comments Source Future Scheduled 2031-03-24 Screening for [facility] 00:00:00 malignant neoplasm of colon (procedure) [code = 377200413] Future Scheduled 2031-03-24 Screening for [facility] Test 00:00:00 malignant neoplasm of colon (procedure) [code = 021814570] Future Scheduled 2022-10-25 COMPREHENSIVE Expected: [facility] Test 00:00:00 METABOLIC PANEL 10/25/2022 of Medicine [code = 34964-9] (Approximate), Expires: 06/27/2023 Future Scheduled 2022-10-25 PTH INTACT [code = Expected: [employer] Test 00:00:00 2731-8] 10/25/2022 of Medicine (Approximate), Expires: 06/27/2023 Future Scheduled 2022-10-25 VITAMIN D 25 HYDROXY Expected: [employer] Test 00:00:00 [code = 1988-3] 10/25/2022 of Medicine (Approximate), Expires: 06/27/2023 Future Scheduled 2022-07-10 Imm Pneumococcal 65+ [facility] Test 00:00:00 (#3) [code = Imm Pneumococcal 65+ (#3)] Future Scheduled 2022-07-10 PNEUMOCOCCAL 65+ YRS [facility] Test 00:00:00 (2 - PPSV23 or Medical Cente r PCV20) [code = PNEUMOCOCCAL 65+ YRS (2 - PPSV23 or PCV20)] Future Scheduled 2022-06-29 PTH INTACT [code = Expected: [employer] Test 00:00:00 2731-8] 06/29/2022 of Medicine (Approximate), Expires: 12/27/2022 Future Scheduled 2022-06-29 BASIC METABOLIC Expected: [facility] Test 00:00:00 PANEL [code = 06/29/2022 of Medicine 22424-4] (Approximate), Expires: 12/27/2022 Future Scheduled 2022-06-29 VITAMIN D 25 HYDROXY Expected: [employer] Test 00:00:00 [code = 1989-3] 06/29/2022 of Medicine (Approximate), Expires: 12/27/2022 Future Scheduled 2022-06-29 ALBUMIN [code = Expected: [facility] Test 00:00:00 1751-7] 06/29/2022 of Medicine (Approximate), Expires: 12/27/2022 Future Scheduled 2022-06-27 Screening for [facility] Test 11:05:26 malignant neoplasm of Medici ne of colon (procedure) [code = 610288162] Future Scheduled 2022-06-27 BMI Follow Up Plan [employer] Test 11:05:26 [code = BMI Follow of Medici ne Up Plan] Future Scheduled 2022-06-27 Hepatitis C [facility] [employer] Test 11:05:26 screening of Medicine (procedure) [code = 993603122] Future Scheduled 2022-06-27 ZOSTER VACCINE (1 of [employer] Test 11:05:26 2) [code = ZOSTER of Medicin e VACCINE (1 of 2)] Future Scheduled 2022-06-27 Medicare Awv [facility] [employer] Test 11:05:26 (Initial) [code = of Medicin e Medicare Awv (Initial)] Future Scheduled 2022-06-27 Pneumococcal 65+ (1 [employer] Test 11:05:26 - PCV) [code = of Medicine Pneumococcal 65+ (1 - PCV)] Future Scheduled 2022-06-27 Screening for [facility] Test 11:05:26 malignant neoplasm of Medici ne of breast (procedure) [code = 169868247] Future Scheduled 2022-06-27 FLU VACCINE > 6 [facility] Test 11:05:26 MONTHS [code = FLU of Medici ne VACCINE > 6 MONTHS] Future Scheduled 2022-06-27 Fall Screen [code = [employer] Test 11:05:26 Fall Screen] of Medicine Future Scheduled 2022-06-27 COVID-19 Vaccine (4 [employer] Test 11:05:26 - Booster for Pfizer of Medi cine series) [code = COVID-19 Vaccine (4 - Booster for Pfizer series)] Future Scheduled 2022-06-27 TETANUS SHOT (ADULT) [employer] Test 11:05:26 [code = TETANUS SHOT of Medi cine (ADULT)] Future Scheduled 2022-06-27 DEXA BONE DENSITY 1 Occurrences [employer] Test 10:58:20 SPINE AND HIP [code starting of Medic ine = 39384] 06/27/2022 until 06/27/2023 Future Scheduled 2022-06-[address] [facility] Test 00:00:00 (12+) [code = Medical Center DEPRESSION SCREENING (12+)] Future Scheduled 2022-06-04 FALLS RISK SCREENING [facility] Test 00:00:00 [code = FALLS RISK Medical C enter SCREENING] Future Scheduled 2022-05-[address] [facility] Test 00:00:00 Counseling and Medical Cente r Screening (12+) [code = Tobacco Cessation Counseling and Screening (12+)] Future Scheduled 2022-03-04 IMM Influenza [facility] Test 00:00:00 Seasonal (>/= 19 yrs) [code = [facility] Influenza Seasonal (>/= 19 yrs)] Future Scheduled 2022-02-[address] [facility] Test 00:00:00 (#1) [code = Medical Center INFLUENZA VACCINE (#1)] Future Scheduled 2022-01-27 COMPREHENSIVE Expected: [facility] Test 00:00:00 METABOLIC PANEL 01/27/2022, of Medicine [code = 67724-3] Expires: 06/29/2022 Future Scheduled 2022-01-27 C-REACTIVE PROTEIN Expected: [employer] Test 00:00:00 [code = 1988-5] 01/27/2022, of Medicine Expires: 06/29/2022 Future Scheduled 2022-01-27 CBC W/AUTO DIFF WITH Expected: [employer] Test 00:00:00 PLATELETS [code = 01/27/2022, of Medicin e 62617-4] Expires: 06/29/2022 Future Scheduled 2022-01-27 SEDIMENTATION RATE Expected: [employer] Test 00:00:00 MODIFIED WESTERGREN 01/27/2022, of Medic ine [code = 4537-7] Expires: 06/29/2022 Future Scheduled 2022-01-08 COMPREHENSIVE Expected: [facility] Test 00:00:00 METABOLIC PANEL 01/08/2022 of Medicine [code = 97840-2] (Approximate), Expires: 07/11/2022 Future Scheduled 2022-01-08 VITAMIN D 25 HYDROXY Expected: [employer] Test 00:00:00 [code = 1989-3] 01/08/2022 of Medicine (Approximate), Expires: 07/11/2022 Future Scheduled 2022-01-08 PTH INTACT [code = Expected: [employer] Test 00:00:00 2731-8] 01/08/2022 of Medicine (Approximate), Expires: 07/11/2022 Future Scheduled 2021-12-27 Screening for [facility] Test 12:57:34 malignant neoplasm of Medici ne of colon (procedure) [code = 795204415] Future Scheduled 2021-12-27 TETANUS SHOT (ADULT) [employer] Test 12:57:34 [code = TETANUS SHOT of Medi cine (ADULT)] Future Scheduled 2021-12-27 Hepatitis C [facility] [employer] Test 12:57:34 screening of Medicine (procedure) [code = 476652022] Future Scheduled 2021-12-27 ZOSTER VACCINE (1 of [employer] Test 12:57:34 2) [code = ZOSTER of Medicin e VACCINE (1 of 2)] Future Scheduled 2021-12-27 MEDICARE IPPE [facility] Test 12:57:34 (WELCOME TO of Medicine MEDICARE) [code = MEDICARE IPPE (WELCOME TO MEDICARE)] Future Scheduled 2021-12-27 Pneumococcal 65+ (1 [employer] Test 12:57:34 - PCV) [code = of Medicine Pneumococcal 65+ (1 - PCV)] Future Scheduled 2021-12-27 COVID-19 Vaccine (4 [employer] Test 12:57:34 - Booster for Pfizer of Medi cine series) [code = COVID-19 Vaccine (4 - Booster for Pfizer series)] Future Scheduled 2021-12-27 Screening for [facility] Test 12:57:34 malignant neoplasm of Medici ne of breast (procedure) [code = 975640796] Future Scheduled 2021-12-27 FLU VACCINE > 6 [facility] Test 12:57:34 MONTHS [code = FLU of Medici ne VACCINE > 6 MONTHS] Future Scheduled 2021-12-27 FALL SCREEN [code = [employer] Test 12:57:34 FALL SCREEN] of Medicine Future Scheduled 2021-12-27 Screening for [facility] Test 11:44:07 malignant neoplasm of Medici ne of colon (procedure) [code = 016353087] Future Scheduled 2021-12-27 TETANUS SHOT (ADULT) [employer] Test 11:44:07 [code = TETANUS SHOT of Medi cine (ADULT)] Future Scheduled 2021-12-27 Hepatitis C [facility] [employer] Test 11:44:07 screening of Medicine (procedure) [code = 807110728] Future Scheduled 2021-12-27 ZOSTER VACCINE (1 of [employer] Test 11:44:07 2) [code = ZOSTER of Medicin e VACCINE (1 of 2)] Future Scheduled 2021-12-27 MEDICARE IPPE [facility] Test 11:44:07 (WELCOME TO of Medicine MEDICARE) [code = MEDICARE IPPE (WELCOME TO MEDICARE)] Future Scheduled 2021-12-27 Pneumococcal 65+ (1 [employer] Test 11:44:07 - PCV) [code = of Medicine Pneumococcal 65+ (1 - PCV)] Future Scheduled 2021-12-27 COVID-19 Vaccine (4 [employer] Test 11:44:07 - Booster for Pfizer of Medi cine series) [code = COVID-19 Vaccine (4 - Booster for Pfizer series)] Future Scheduled 2021-12-27 Screening for [facility] Test 11:44:07 malignant neoplasm of Medici ne of breast (procedure) [code = 365132187] Future Scheduled 2021-12-27 FLU VACCINE > 6 [facility] Test 11:44:07 MONTHS [code = FLU of Medici ne VACCINE > 6 MONTHS] Future Scheduled 2021-12-27 FALL SCREEN [code = [employer] Test 11:44:07 FALL SCREEN] of Medicine Future Scheduled 2021-12-26 BASIC METABOLIC Expected: [facility] Test 00:00:00 PANEL [code = 12/26/2021 of Medicine 58861-7] (Approximate), Expires: 09/26/2022 Future Scheduled 2021-12-26 ALBUMIN [code = Expected: [employer] [facility]lege Test 00:00:00 1751-7] 12/26/2021 of Medicine (Approximate), Expires: 09/26/2022 Future Scheduled 2021-12-26 PTH INTACT [code = Expected: [facility] [employer] Test 00:00:00 2731-8] 12/26/2021 of Medicine (Approximate), Expires: 09/26/2022 Future Scheduled 2021-12-26 VITAMIN D 25 HYDROXY Expected: [facility]UN[facility] [employer] Test 00:00:00 [code = 1989-3] 12/26/2021 of Medicine (Approximate), Expires: 09/26/2022 Future Scheduled 2021-09-26 MAGNESIUM [code = Ordered: [facility] [employer] Test 10:49:19 84266-2] 09/26/2021 of Medicine Future Scheduled 2021-09-26 PHOSPHORUS [code = Ordered: [employer] Test 10:49:19 2777-1] 09/26/2021 of Medicine Future Scheduled 2021-09-26 Screening for [facility] Test 09:45:33 malignant neoplasm of Medici ne of colon (procedure) [code = 908345759] Future Scheduled 2021-09-26 TETANUS SHOT (ADULT) [employer] Test 09:45:33 [code = TETANUS SHOT of Medi cine (ADULT)] Future Scheduled 2021-09-26 Hepatitis C [facility] [employer] Test 09:45:33 screening of Medicine (procedure) [code = 211163667] Future Scheduled 2021-09-26 ZOSTER VACCINE (1 of [employer] Test 09:45:33 2) [code = ZOSTER of Medicin e VACCINE (1 of 2)] Future Scheduled 2021-09-26 MEDICARE IPPE [facility] Test 09:45:33 (WELCOME TO of Medicine MEDICARE) [code = MEDICARE IPPE (WELCOME TO MEDICARE)] Future Scheduled 2021-09-26 Pneumococcal 65+ (1 [employer] Test 09:45:33 of 1 - PPSV23) [code of Medi cine = Pneumococcal 65+ (1 of 1 - PPSV23)] Future Scheduled 2021-09-26 Screening for [facility] Test 09:45:33 malignant neoplasm of Medici ne of breast (procedure) [code = 892338070] Future Scheduled 2021-09-26 FLU VACCINE > 6 [facility] Test 09:45:33 MONTHS [code = FLU of Medici ne VACCINE > 6 MONTHS] Future Scheduled 2021-09-26 FALL SCREEN [code = [employer] Test 09:45:33 FALL SCREEN] of Medicine Future Scheduled 2021-09-26 BASIC METABOLIC Ordered: [facility] Test 09:34:52 PANEL [code = 09/26/2021 of Medicine 54048-7] Future Scheduled 2021-09-26 ALBUMIN [code = Ordered: [facility] Test 09:34:52 1751-7] 09/26/2021 of Medicine Future Scheduled 2021-09-26 VITAMIN D 25 HYDROXY Ordered: [employer] Test 09:34:52 [code = 1989-3] 09/26/2021 of Medicine Future Scheduled 2021-09-26 PTH INTACT [code = Ordered: [employer] Test 09:34:52 2731-8] 09/26/2021 of Medicine Future Scheduled 2021-09-26 CALCIUM IONIZED Ordered: [facility] Test 09:34:52 [code = 24785-3] 09/26/2021 of Medicine Future Scheduled 2021-07-31 [facility] 00:00:00 (Yearly) [code = Breast Cancer Scrn (Yearly)] Future Scheduled 2021-07-11 COMPREHENSIVE Ordered: [facility] Test 14:35:04 METABOLIC PANEL 07/11/2021 of Medicine [code = 41212-4] Future Scheduled 2021-07-11 VITAMIN D 25 HYDROXY Ordered: [facility] Test 14:35:04 [code = 1989-3] 07/11/2021 of Medicine Future Scheduled 2021-07-11 PTH INTACT [code = Ordered: [facility] [place] Test 14:35:04 2731-8] 07/11/2021 of Medicine Future Scheduled 2021-07-11 Screening for [facility] Test 13:58:42 malignant neoplasm of Medici ne of colon (procedure) [code = 196863313] Future Scheduled 2021-07-11 TETANUS SHOT (ADULT) [facility] Test 13:58:42 [code = TETANUS SHOT of Medi cine (ADULT)] Future Scheduled 2021-07-11 Hepatitis C [facility] [employer] Test 13:58:42 screening of Medicine (procedure) [code = 623284168] Future Scheduled 2021-07-11 ZOSTER VACCINE (1 of [employer] Test 13:58:42 2) [code = ZOSTER of Medicin e VACCINE (1 of 2)] Future Scheduled 2021-07-11 Screening for [facility] Test 13:58:42 malignant neoplasm of Medici ne of breast (procedure) [code = 352041275] Future Scheduled 2021-07-11 MEDICARE IPPE [facility] Test 13:58:42 (WELCOME TO of Medicine MEDICARE) [code = MEDICARE IPPE (WELCOME TO MEDICARE)] Future Scheduled 2021-07-11 Pneumococcal 65+ (1 [employer] Test 13:58:42 of 1 - PPSV23) [code of Medi cine = Pneumococcal 65+ (1 of 1 - PPSV23)] Future Scheduled 2021-07-11 FALL SCREEN [code = [employer] Test 13:58:42 FALL SCREEN] of Medicine Future Scheduled 2021-07-04 Screening for [facility] Test 09:26:31 malignant neoplasm of Medici ne of colon (procedure) [code = 242287377] Future Scheduled 2021-07-04 TETANUS SHOT (ADULT) [employer] Test 09:26:31 [code = TETANUS SHOT of Medi cine (ADULT)] Future Scheduled 2021-07-04 Hepatitis C [facility] Test 09:26:31 screening of Medicine (procedure) [code = 287164197] Future Scheduled 2021-07-04 ZOSTER VACCINE (1 of [employer] Test 09:26:31 2) [code = ZOSTER of Medicin e VACCINE (1 of 2)] Future Scheduled 2021-07-04 Screening for [facility] Test 09:26:31 malignant neoplasm of Medici ne of breast (procedure) [code = 391803243] Future Scheduled 2021-07-04 MEDICARE IPPE [facility] Test 09:26:31 (WELCOME TO of Medicine MEDICARE) [code = MEDICARE IPPE (WELCOME TO MEDICARE)] Future Scheduled 2021-07-04 FALL SCREEN [code = [employer] Test 09:26:31 FALL SCREEN] of Medicine Future Scheduled 2021-07-04 Pneumococcal 65+ (1 [employer] Test 09:26:31 of 1 - PPSV23) [code of Medi cine = Pneumococcal 65+ (1 of 1 - PPSV23)] Future Scheduled 2021-06-27 COVID-19 VACCINE ([address] [facility] Test 00:00:00 - Booster for Pfizer Medical Center series) [code = COVID-19 VACCINE (4 - Booster for Pfizer series)] Future Scheduled 2021-06-22 Screening for [facility] Test 09:47:46 malignant neoplasm of Medici ne of colon (procedure) [code = 486399063] Future Scheduled 2021-06-22 TETANUS SHOT (ADULT) [employer] Test 09:47:46 [code = TETANUS SHOT of Medi cine (ADULT)] Future Scheduled 2021-06-22 Hepatitis C [facility] Test 09:47:46 screening of Medicine (procedure) [code = 475881652] Future Scheduled 2021-06-22 ZOSTER VACCINE (1 of [employer] Test 09:47:46 2) [code = ZOSTER of Medicin e VACCINE (1 of 2)] Future Scheduled 2021-06-22 Screening for [facility] Test 09:47:46 malignant neoplasm of Medici ne of breast (procedure) [code = 239087309] Future Scheduled 2021-06-22 MEDICARE IPPE [facility] Test 09:47:46 (WELCOME TO of Medicine MEDICARE) [code = MEDICARE IPPE (WELCOME TO MEDICARE)] Future Scheduled 2021-06-22 FALL SCREEN [code = [employer] Test 09:47:46 FALL SCREEN] of Medicine Future Scheduled 2021-06-22 Screening for [facility] Test 09:47:46 osteoporosis of Medicine (procedure) [code = 864548532] Future Scheduled 2021-06-22 Pneumococcal 65+ (1 [employer] Test 09:47:46 of 1 - PPSV23) [code of Medi cine = Pneumococcal 65+ (1 of 1 - PPSV23)] Future Scheduled 2021-06-16 Screening for [facility] Test 09:40:43 malignant neoplasm of Medici ne of colon (procedure) [code = 808232103] Future Scheduled 2021-06-16 TETANUS SHOT (ADULT) [employer] Test 09:40:43 [code = TETANUS SHOT of Medi cine (ADULT)] Future Scheduled 2021-06-16 Hepatitis C [facility] [employer] Test 09:40:43 screening of Medicine (procedure) [code = 677410485] Future Scheduled 2021-06-16 ZOSTER VACCINE (1 of [employer] Test 09:40:43 2) [code = ZOSTER of Medicin e VACCINE (1 of 2)] Future Scheduled 2021-06-16 Screening for [facility] Test 09:40:43 malignant neoplasm of Medici ne of breast (procedure) [code = 010393637] Future Scheduled 2021-06-16 MEDICARE IPPE [facility] Test 09:40:43 (WELCOME TO of Medicine MEDICARE) [code = MEDICARE IPPE (WELCOME TO MEDICARE)] Future Scheduled 2021-06-16 FALL SCREEN [code = [employer] Test 09:40:43 FALL SCREEN] of Medicine Future Scheduled 2021-06-16 Screening for [facility] Test 09:40:43 osteoporosis of Medicine (procedure) [code = 453914594] Future Scheduled 2021-06-16 Pneumococcal 65+ (1 [facility] or [place] Test 09:40:43 of 1 - PPSV23) [code of [facility] = Pneumococcal 65+ (1 of 1 - PPSV23)] Future Scheduled 2021-06-[address] [facility] Test 00:00:00 WELLNESS (YEAR 2 or Medical Center FIRST YEAR if no IPPE) [code = MEDICARE ANNUAL WELLNESS (YEAR 2 or FIRST YEAR if no IPPE)] Future Scheduled 2021-04-22 COVID-19 Vaccine (4 [facility] Test 00:00:00 - Booster for Pfizer series) [code = COVID-19 Vaccine (4 - Booster for Pfizer series)] Future Scheduled 2006 [facility] 00:00:00 malignant neoplasm of colon (procedure) [code = 055643803] Future Scheduled 2006 [facility] 00:00:00 malignant neoplasm of colon (procedure) [code = 057615951] Future Scheduled 2006 [facility] 00:00:00 malignant neoplasm of colon (procedure) [code = 811241327] Future Scheduled 2006 SHINGLES VACCINES ([address] [facility] Test 00:00:00 of 2) [code = Medical Center SHINGLES VACCINES (1 of 2)] Future Scheduled 1975 DTAP/TDAP/TD [facility] Test 00:[facility]:00 VACCINES (1 - Tdap) [facility] [code = DTAP/TDAP/TD VACCINES (1 - Tdap)] Future Scheduled [address] [facility] Test 00:00:00 SCREENING [code = Medical nter HEPATITIS C SCREENING] Future Scheduled [address] [facility] Test 00:00:00 malignant neoplasm Medical C enter of breast (procedure) [code = 098779106] Future Scheduled [address] [facility] Test 00:00:00 (combo) [code = CT Medical C enter Colonography (combo)] Future Scheduled [address] [facility] Test 00:00:00 malignant neoplasm Medical C enter of colon (procedure) [code = 077278416] Future Scheduled [address] [facility] Test 00:00:00 malignant neoplasm Medical C enter of colon (procedure) [code = 344149253] Future Scheduled 1956 DXA SCAN [code = DXA [facility] Test 00:00:00 SCAN] Medical Center Future Scheduled [address] [facility] Test 00:00:00 malignant neoplasm Medical C enter of colon (procedure) [code = 944142808] Future Scheduled [address] [facility] Test 00:00:00 malignant neoplasm Medical C enter of colon (procedure) [code = 551775830] Future Scheduled 1956 Sigmoidoscopy [code [facility] Test 00:00:00 = Sigmoidoscopy] Medical Scot ter Encounters Start End Encounter Admission Attending Care Care Encounter Source Date/Time Date/Time Type Type Clinicians Facility Department ID 2022-07-24 Outpatient [facility] [id number] [place] 09:34:58 [id number] [facility] 2023-01-16 2023-01-16 Outpatient Marc MATIAS [facility] [id number] [facility] 10:30:00 10:30:00 KENYATTA appiah [facility] 2022-11-30 2022-11-30 [facility] [id number] [address] [place] [address] 00:00:00 00:00:00 GAGANDEEP Noland e of Medicin e 2022-08-01 2022-08-01 Outpatient AMARIS RAY [facility] [id number] [place] 09:30:00 09:30:00 [facility] 2022-08-01 2022-08-01 Outpatient Marc ANGULO [facility] [id number] [facility] 09:20:00 09:20:00 ATTENDING td [facility] 2022-07-31 2022-07-31 Outpatient FOG_Halamic [facility] A[facility] [id number] Tina 00:00:00 00:00:00 ek_Mar_NP [id number] [facility] 2022-07-21 2022-07-21 Telephone Polly [facility] [id number] Univers 00:00:00 00:00:00 Kenyatta [facility] 350.1.13.10 it [facility] 4.2.7.2.686 Gerhard as MONI?BLEA [id number] [address] OFFICE BUILDING 2022-07-20 2022-07-20 Patient Polly [facility] [id number] [employer] 00:00:00 00:00:00 Secure Msg Kenyatta [facility] 350.1.13.10 ity of [place] 4.2.7.2.686 Gerhard as MONI?BLEA [id number] [address] OFFICE [facility] 2022-07-19 2022-07-19 Outpatient R POLLY [facility] [id number] [employer] 09:00:00 23:59:00 KENYATTA appiah [facility] 2022-07-19 2022-07-19 Office Polly [facility] [id number] [employer] 08:30:00 09:05:02 Visit Kenyatta [facility] 350.1.13.10 it y of [place] 4.2.7.2.686 Gerhard as MONI?BLEA [id number] [address] OFFICE [facility] 2022-06-27 2022-06-27 Office Anneliese Rowe BC [id number] [facility] 11:00:00 11:05:46 Visit AMBULATOR 350.1.13.21 College Y 0.2.7.2.686 of [id number] [facility] 310 e 2022-03-27 2022-03-27 Outpatient R NATALIE [facility] [id number] Univers 11:00:00 11:51:20 DONG appiah [facility] 2022-03-27 2022-03-27 Ancillary Jade Macias [facility] 1.2.84 [id number] Univers 11:00:00 11:51:20 Visit Dong Estrada 350.1.13.10 [facility] [place] [id number] N[place] ricky [facility] [address] [facility] 2022-03-22 2022-03-22 Ancillary Jade Macias [facility] 1.2.84 0.114 [id number] [facility] 09:30:00 10:46:12 Visit EstradaDong Serg VALERIE 350.1.13.10 [place] [id number] Nv dical NAL [address] [facility] 2022-03-20 2022-03-20 Ancillary Jade Macias [facility] 1.2.84 0.114 [id number] [facility] 09:30:00 10:17:58 Visit Dong Estrada 350.1.13.10 [place] [id number] Nv dical NAL [address] [facility] 2022-03-14 2022-03-14 Ancillary Jade Macias [facility] 1.2.84 0.114 [id number] [facility] 10:15:00 11:00:35 Visit Dong Estrada 350.1.13.10 [place] of [place] [id number] Nv dical NAL [address] [facility] 2022-03-07 2022-03-07 Ancillary Azalia Aguero [facility] 1.2. [id number] [facility] 09:30:00 10:15:00 Visit Dong Estrada 350.1.13.10 [place] [id number] Nv dical NAL [address] [facility] 2022-03-02 2022-03-02 Ancillary Azalia Aguero [facility] 1.2. 840.114 [id number] [facility] 09:30:00 10:15:00 Visit Dong Estrada 350.1.13.10 ity of [place] [id number] Nv dical NAL 179 [facility] 2022-03-02 2022-03-02 Outpatient R NATALIE PRJARROD [facility] [id number] [facility] 09:30:00 09:30:00 DONG ity of [facility] 2022-02-28 2022-02-28 Ancillary Jade Macias [facility] 1.2.84 0.114 [id number] Univers 09:30:00 10:18:46 Visit Dong Estrada 350.1.13.10 ity [facility] [place] [id number] Nv dical NAL 179 [facility] 2022-02-28 2022-02-28 Orders Doctor MEGAN 1.2.840.114 [id number] Univers 00:00:00 00:00:00 Only Unassigned, SORIN 350.1.13.10 ity of [place] [facility] 4.2.7.2.686 Gerhard as [id number] [address] 2022-02-24 2022-02-24 Urgent [facility] 1.2.840.114 [id number] Univers 18:20:00 18:40:00 Care [facility] 350.1.13.10 i ty of [place] 4.2.7.2.686 Gerhard as MONI?BLEA [phone] Nv dicUAB HospitalEY [address] MEDICAL OFFICE [facility] 2022-02-24 2022-02-24 Outpatient R LEAH [facility] [id number] Univers 18:20:00 18:20:00 ARNAUD appiah o f [facility] 2022-02-22 2022-02-22 Ancillary Jade Macias [facility] 1.2.84 0.114 [id number] Univers 09:30:00 10:27:19 Visit Dong Estrada 350.1.13.10 ity [facility] [place] [id number] Nv dical NAL 179 [facility] 2022-02-22 2022-02-22 Outpatient R NATALIE [facility] [id number] Univers 09:30:00 09:30:00 DONG appiah [facility] 2022-02-13 2022-02-13 Racket [facility], Ang - Db [facility] 1.2.840.1 14 [id number] Univers 09:15:00 09:30:00 Visit Kenyatta Matias 350.1.13.10 ity of [place] 4.2.7.2.686 Gerhard as MONI?BLEA [id number] Nv ricky ROSEN [address] MEDICAL OFFICE [facility] 2022-02-13 2022-02-13 Office [facility] 1.2.840.114 [id number] Univers 08:30:00 09:17:[address] 350.1.13.10 it y of [place] 4.2.7.2.686 Gerhard as MONI?BLEA [id number] Nv ricky ROSEN 044 [facility] OFFICE [facility] 2022-02-13 2022-02-13 Outpatient R POLLY [facility] [id number] Univers 08:30:00 09:17:49 KENYATTA appiah [facility] 2022-02-13 2022-02-13 Outpatient R POLLY [facility] [id number] Univers 09:15:00 09:15:00 KENYATTA appiah [facility] 2022-02-13 2022-02-13 Outpatient R POLLY [facility] [id number] Univers 08:30:00 08:30:00 KENYATTA appiah [facility] 2022-02-13 2022-02-13 Outpatient R POLLY [facility] [id number] Univers 08:30:00 08:30:00 KENYATTA appiah [facility] 2022-02-10 2022-02-10 Telephone [facility] 1.2.858.568 [id number] Univers 00:00:00 00:00:00 Kenyatta HEALTH 350.1.13.10 it y of [place] 4.2.7.2.686 Gerhard as MONI?BLEA [id number] Nv ricky ROSEN [address] [place] [address] OFFICE [facility] 2022-02-08 2022-02-08 [facility] [id number] Univers 09:43:46 09:43:46 KENYATTA appiah [facility] 2022-02-08 2022-02-08 [facility] [id number] Univers 09:00:00 09:41:39 KENYATTA appiah [facility] 2022-02-08 2022-02-08 Office [facility] 1.2.840.114 [id number] Univers 09:00:00 09:41:39 Visit Kenyatta HEALTH 350.1.13.10 it y [facility] 4.2.7.2.686 Gerhard as MONI?BLEA [id number] [address] MEDICAL OFFICE [facility] 2022-02-08 2022-02-08 Abstract Polly [facility] 1.2.840.[id number] [place] [address] 00:00:00 00:00:00 Kenyatta HEALTH 350.1.13.10 it y of [place] 4.2.7.2.686 Gerhard as MONI?BLEA [id number] [address] OFFICE [facility] 2021-12-27 2021-12-27 Office INGA Weller 1.2.840.114 [id number] [facility] 13:00:00 13:30:00 Visit Geraldine AMBULATOR 350.1.13.21 College Y 0.2.7.2.686 of [id number] [facility] zeeshan 370 e 2021-12-27 2021-12-27 Office Anneliese Rowe [facility] 1.2.773.082 [id number] [facility] 11:00:00 11:12:52 Visit AMBULATOR 350.1.13.21 College Y 0.2.7.2.686 of [id number] [facility] zeeshan 310 e 2021-12-22 2021-12-22 Letter MEGAN Ward 1.2.774.960 [id number] Univers 00:00:00 00:00:00 (Out) Higinio ROWELL 350.1.13.10 it y of HOSPITAL 4.2.7.2.686 Gerhard as [id number] [place] [address] [place] 2021-12-21 2021-12-21 Out[facility] [id number] Univers 09:40:00 10:21:04 ARNAUD appiah o f [facility] 2021-12-21 2021-12-21 Urgent [facility] 1.2.840.114 [id number] Univers 09:40:00 10:00:00 Care Arnaud HEALTH 350.1.13.10 i ty of [place] 4.2.7.2.686 Gerhard as MONI?BLEA [id number] Nv dical [facility] [address] MEDICAL OFFICE BUILDING 2021-12-21 2021-12-21 Orders Doctor MEGAN 1.2.840.114 [id number] Univers 00:00:00 00:00:00 Only Unassigned, SORIN 350.1.13.10 ity of [place] [facility] 4.2.7.2.686 Gerhard as [id number] [facility] ian 009 [place] 2021-09-26 2021-09-26 Office Anneliese Rowe BCM 1.2.801.734 [id number] [facility] 09:30:00 09:45:40 Visit AMBULATOR 350.1.13.21 College Y 0.2.7.2.686 of [id number] Medi zeeshan 310 e 2021-07-11 2021-07-11 Office Anneliese Rowe BCM 1.2.666.391 [id number] [facility] 14:15:00 14:44:12 Visit AMBULATOR 350.1.13.21 College Y 0.2.7.2.686 of [id number] Medi zeeshan 310 e 2021-07-04 2021-07-04 Office INGA Weller 1.2.840.114 [id number] [facility] 09:45:00 10:48:25 Visit Geraldine AMBULATOR 350.1.13.21 College Y 0.2.7.2.686 of [id number] Medi zeeshan 370 e 2021-06-16 2021-06-16 Office INGA ROMERO 1.2.840.114 [id number] [facility] 08:45:37 08:45:37 Visit NANDO AMBULATOR 350.1.13.21 College Y 0.2.7.2.686 of [id number] Medi zeeshan 300 e 2021-06-13 2021-06-13 Office DINH PIERSON 1.2.840.114 [id number] [facility] 11:05:56 13:39:45 Visit GONZALO PerezNair 350.1.13.21 Co llege 0.2.7.2.686 of [id number] Medi zeeshan 510 e 2021-06-13 2021-06-13 Outpatient [facility] [id number] [address] [place] [address] 00:00:00 00:00:00 [facility] 2021-06-10 2021-06-10 Outpatient Marc JAY III, [facility] [id number] Univers 09:40:00 11:08:15 VERONICA appiah [facility] 2021-06-10 2021-06-10 Urgent Arnaud Head [facility] 1.2.840. 114 [id number] [facility] 09:40:00 10:00:00 David Jay Veronica [facility] 350.1.13.10 [facility] 4.2.7.2.686 Gerhard as MONI?BLEA [id number] [address] MEDICAL OFFICE BUILDING 2021-05-31 2021-05-31 Outpatient GENE HDEZ Surgery [id number] SLE 07:35:00 17:17:00 GONZALO 2021-05-30 2021-05-30 [facility] [id number] [facility] 14:03:04 23:59:00 2021-05-26 2021-05-26 [facility] [id number] [place] 00:00:00 00:00:00 [facility] 2021-05-11 2021-05-11 Outpatient INGA PIERSON [facility] [id number] [facility] 10:37:42 11:54:04 GONZALO uribe of Medicin e 2021-04-25 2021-04-26 Emergency [facility] [id number] [place] 12:39:00 00:32:00 [facility] 2021-04-25 2021-04-25 Emergency [facility] [id number] [place] 14:44:21 14:44:21 Health 2021-04-19 2021-04-19 [facility] [id number] [place] 09:06:48 09:12:28 [facility] 2021-04-19 2021-04-19 Outpatient LONI [facility] [id number] [place] 00:00:00 00:00:00 [facility] 2021-03-18 2021-03-18 Outpatient [facility] [id number] [place] 11:48:09 11:55:08 Health 2021-03-18 2021-03-18 Outpatient [facility] [id number] [place] 10:14:49 11:21:03 [facility] 2021-03-18 2021-03-18 Outpatient [facility] [id number] [place] 08:19:29 08:19:34 Health 2021-03-18 2021-03-18 [facility] [id number] [place] 00:00:00 00:00:00 [facility] 2021-02-25 2021-02-25 Outpatient [facility] [id number] [place] 10:28:06 10:29:30 Health 2021-01-24 2021-01-24 [facility] [id number] [place] 10:59:12 12:26:56 GAUTAM [facility] 2021-01-13 2021-01-13 Outpatient MIKEL, [facility] [id number] [place] 10:07:57 11:01:[facility] 2020-12-29 2020-12-29 Outpatient [facility] [id number] [place] 07:31:11 23:59:00 [facility] 2020-12-17 2020-12-17 Outpatient [facility] [id number] [place] 14:58:55 15:59:21 [facility] 2020-12-13 2020-12-13 Outpatient [facility] [id number] [place] 13:23:55 14:11:58 [facility] 2020-11-30 2020-11-30 Outpatient [facility] [id number] [place] 16:09:55 16:10:29 Health 2020-11-30 2020-11-30 Outpatient TRICIA, [facility] [id number] [place] 14:38:07 16:01:50 [facility] 2020-11-18 2020-11-18 Outpatient [facility] [id number] [place] 10:45:45 10:47:13 Health 2020-11-18 2020-11-18 [facility] [id number] [place] 09:09:19 10:14:58 [facility] 2020-11-16 2020-11-16 Outpatient [facility] [id number] [place] 12:00:25 12:07:38 Health 2020-11-16 2020-11-16 Outpatient [facility] [id number] [place] 10:17:07 11:52:48 [facility] 2020-11-10 2020-11-11 [facility] [id number] [place] 02:48:00 16:28:00 ROB [facility] 2020-11-09 2020-11-09 [facility] [id number] [place] 08:08:00 08:10:00 BIBIANA [facility] 2020-11-08 2020-11-08 Outpatient XIOMY, [facility] [id number] [place] 16:04:49 16:53:[address] [facility] 2020-11-08 2020-11-08 Outpatient [facility] [id number] [place] 15:03:22 15:49:03 Health 2020-11-02 2020-11-02 Outpatient EVERARDO, [facility] [id number] [place] 14:32:36 15:15:39 YASIR [facility] 2019-09-12 2019-09-12 Outpatient [facility] [id number] [place] 00:00:00 00:00:00 Health 2019-08-26 2019-08-26 Outpatient [facility] [id number] [place] 00:00:00 00:00:00 Health 2019-08-19 2019-08-19 Outpatient [facility] [id number] [place] 00:00:00 00:00:00 Health 2019-08-18 2019-08-18 Outpatient [facility] [id number] [place] 00:00:00 00:00:00 Health 2019-08-18 2019-08-18 Outpatient [facility] [id number] [place] 00:00:00 00:00:00 Health 2019-08-18 2019-08-18 Outpatient [facility] [id number] [place] 00:00:00 00:00:00 Health 2019-08-15 2019-08-15 Outpatient [facility] [id number] [place] 00:00:00 00:00:00 Health 2019-07-22 2019-07-22 Emergency [facility] [id number] [place] 05:12:11 05:12:11 Health 2019-07-22 2019-07-22 Outpatient [facility] [id number] [place] 03:16:35 03:16:35 Health 2019-07-10 2019-07-10 Outpatient [facility] [id number] [place] 10:21:40 10:21:40 Health 2019-07-10 2019-07-10 Outpatient [facility] [id number] [place] 00:00:00 00:00:00 Health 2019-07-08 2019-07-08 Outpatient [facility] [id number] [place] 10:38:36 10:38:36 Health 2019-07-03 2019-07-03 Outpatient [facility] [id number] [place] 09:48:10 09:48:10 [facility] 2019-06-26 2019-06-26 Outpatient [facility] [id number] [place] 00:00:00 00:00:00 [facility] 2019-06-20 2019-06-20 Outpatient [facility] [id number] [place] 09:50:00 09:50:00 [facility] 2019-06-17 2019-06-17 Outpatient [facility] [id number] [place] 00:00:00 00:00:00 [facility] 2019-06-16 2019-06-16 Outpatient [facility] [id number] [place] 10:44:50 10:44:50 [facility] 2019-06-16 2019-06-16 Outpatient [facility] [id number] [place] 10:28:41 10:28:41 [facility] 2019-06-16 2019-06-16 Outpatient [facility] [id number] [place] 00:00:00 00:00:00 [facility] 2019-06-02 2019-06-02 Outpatient [facility] [id number] [place] 14:38:08 14:38:08 [facility] 2019-06-02 2019-06-02 Outpatient [facility] [id number] [place] 11:40:06 11:40:06 [facility] 2019-05-23 2019-05-23 Outpatient [facility] [id number] [place] 09:36:29 09:36:29 [facility] 2019-05-23 2019-05-23 Outpatient [facility] [id number] [place] 08:04:28 08:04:28 [facility] 2019-05-23 2019-05-23 Outpatient [facility] [id number] [place] 00:00:00 00:00:00 [facility] 2019-05-16 2019-05-16 Outpatient [facility] [id number] [place] 00:00:00 00:00:00 [facility] 2019-05-09 2019-05-09 Outpatient [facility] [id number] [place] 10:33:11 10:33:11 Health 2019-05-09 2019-05-09 Outpatient [facility] [id number] [place] 00:00:00 00:00:00 [facility] 2019-05-05 2019-05-05 Outpatient [facility] [id number] [place] 10:49:29 10:49:29 Health 2019-04-10 2019-04-10 Outpatient [facility] [id number] [place] 07:29:55 07:29:55 Health 2019-04-01 2019-04-01 Outpatient [facility] [id number] [place] 12:21:30 12:21:30 Health 2019-04-01 2019-04-01 Outpatient [facility] [id number] [place] 10:48:51 10:48:51 [facility] 2019-04-01 2019-04-01 Outpatient [facility] [id number] [place] 00:00:00 00:00:00 [facility] 2019-04-01 2019-04-01 Outpatient [facility] [id number] [place] 00:00:00 00:00:00 [facility] 2019-03-28 2019-03-28 Outpatient [facility] [id number] [place] 08:52:23 08:52:23 [facility] 2019-03-25 2019-03-25 Outpatient [facility] [id number] [place] 08:48:46 08:48:46 [facility] 2019-03-25 2019-03-25 Outpatient [facility] [id number] [place] 07:34:49 07:34:49 [facility] 2019-03-14 2019-03-14 Outpatient [facility] [id number] [place] 11:55:31 11:55:31 [facility] 2019-03-14 2019-03-14 Outpatient [facility] [id number] [place] 11:55:27 11:55:27 [facility] 2019-03-14 2019-03-14 Outpatient [facility] [id number] [place] 09:56:03 09:56:03 [facility] 2019-03-10 2019-03-10 Outpatient [facility] [id number] [place] 08:48:43 08:48:43 [facility] 2019-03-10 2019-03-10 Outpatient [facility] [id number] [place] 07:27:14 07:27:14 [facility] 2019-02-28 2019-02-28 Outpatient [facility] [id number] [place] 11:55:33 11:55:33 [facility] 2019-02-28 2019-02-28 Outpatient [facility] [id number] [place] 11:29:02 11:29:02 Health 2019-02-28 2019-02-28 Outpatient [facility] [id number] [place] 09:56:19 09:56:19 [facility] 2019-02-28 2019-02-28 Outpatient [facility] [id number] [place] 09:42:51 09:42:51 Health 2019-02-28 2019-02-28 Outpatient [facility] [id number] [place] 00:00:00 00:00:00 [facility] 2019-02-14 2019-02-14 Outpatient [facility] [id number] [place] 13:56:28 13:56:28 [facility] 2019-02-04 2019-02-04 Outpatient [facility] [id number] [place] 10:24:29 10:24:29 [facility] 2019-01-17 2019-01-17 Outpatient [facility] [id number] [place] 00:00:00 00:00:00 [facility] 2019-01-13 2019-01-13 Outpatient [facility] [id number] [place] 14:24:13 14:24:13 [facility] 2019-01-09 2019-01-09 Outpatient [facility] [id number] [place] 00:00:00 00:00:00 [facility] 2018-12-18 2018-12-18 Outpatient [facility] [id number] [place] 12:30:23 12:30:23 [facility] 2018-11-28 2018-11-28 Outpatient [facility] [id number] [place] 09:56:09 09:56:09 [facility] 2018-11-21 2018-11-21 Outpatient [facility] [id number] [place] 10:10:03 10:10:03 [facility] 2018-11-21 2018-11-21 Outpatient [facility] [id number] [place] 00:00:00 00:00:00 [facility] 2018-11-21 2018-11-21 Outpatient [facility] [id number] [place] 00:00:00 00:00:00 [facility] 2018-11-21 2018-11-21 Outpatient [facility] [id number] [place] 00:00:00 00:00:00 [facility] 2018-11-12 2018-11-12 Outpatient [facility] [id number] [place] 09:53:56 09:53:56 [facility] 2018-10-25 2018-10-25 Outpatient [facility] [id number] [place] 00:00:00 00:00:00 [facility] 2018-10-10 2018-10-10 Outpatient [facility] [id number] [place] 13:02:20 13:02:20 [facility] 2018-10-08 2018-10-08 Outpatient [facility] [id number] [place] 11:04:21 11:04:21 [facility] 2018-09-12 2018-09-12 Outpatient [facility] [id number] [place] 00:00:00 00:00:00 [facility] 2018-09-10 2018-09-10 Outpatient [facility] [id number] [place] 08:14:09 08:14:09 [facility] 2018-09-09 2018-09-09 Outpatient [facility] [id number] [place] 10:38:15 10:38:15 Health 2018-09-03 2018-09-03 Outpatient [facility] [id number] [place] 15:02:20 15:02:20 Health 2018-08-23 2018-08-23 Outpatient [facility] [id number] [place] 13:11:46 13:11:46 Health 2018-08-23 2018-08-23 Outpatient [facility] [id number] [place] 00:00:00 00:00:00 [facility] 2018-08-13 2018-08-13 Outpatient [facility] [id number] [place] 08:50:56 08:50:56 Health 2018-08-08 2018-08-08 Emergency [facility] [id number] [place] 17:50:58 17:50:58 Health 2018-08-08 2018-08-08 Emergency [facility] [id number] [place] 14:11:56 14:11:56 [facility] 2018-08-08 2018-08-08 Outpatient [facility] [id number] [place] 00:00:00 00:00:00 [facility] 2018-08-04 2018-08-04 Emergency [facility] [id number] [place] 00:00:00 00:00:00 [facility] 2018-08-03 2018-08-03 Emergency [facility] [id number] [place] 22:54:36 22:54:36 [facility] 2018-07-31 2018-07-[address] [facility] [id number] [place] 06:00:00 06:00:00 [facility] 2018-07-26 2018-07-26 Outpatient [facility] [id number] [place] 00:00:00 00:00:00 [facility] 2018-07-19 2018-07-19 Outpatient [facility] [id number] [place] 00:00:00 00:00:00 [facility] 2018-07-19 2018-07-19 Outpatient [facility] [id number] [place] 00:00:00 00:00:00 [facility] 2018-06-18 2018-06-18 Outpatient [facility] [id number] [place] 00:00:00 00:00:00 [facility] 2018 2018 Outpatient [facility] [id number] [place] 00:00:00 00:00:00 [facility] 2018-05-20 2018-05-20 Outpatient [facility] [id number] [place] 00:00:00 00:00:00 [facility] 2018-05-02 2018-05-02 Outpatient [facility] [id number] [place] 10:26:20 10:26:20 [facility] 2018-04-29 2018-04-29 Outpatient [facility] [id number] [place] 09:08:24 09:08:24 [facility] 2018-04-08 2018-04-08 Outpatient [facility] [id number] [place] 11:04:58 11:04:58 [facility] 2018-03-08 2018-03-08 Outpatient [facility] [id number] [place] 12:02:16 12:02:16 [facility] 2018-03-08 2018-03-08 Outpatient [facility] [id number] [place] 10:52:42 10:52:42 [facility] 2018-02-07 2018-02-07 Outpatient [facility] [id number] [place] 08:58:47 08:58:47 [facility] 2018-01-04 2018-01-04 Outpatient [facility] [id number] [place] 09:35:01 09:35:01 [facility] 2017-12-14 2017-12-14 Outpatient [facility] [id number] [place] 13:20:44 13:20:44 [facility] 2017-12-10 2017-12-10 Outpatient [facility] [id number] [place] 08:37:53 08:37:53 [facility] 2017-12-04 2017-12-04 Outpatient [facility] [id number] [place] 00:00:00 00:00:00 [facility] 2017-12-03 2017-12-03 Outpatient [facility] [id number] [place] 00:00:00 00:00:00 [facility] 2017-11-20 2017-11-20 Outpatient [facility] [id number] [place] 09:55:56 09:55:56 [facility] 2017-11-15 2017-11-15 Outpatient [facility] [id number] [place] 11:10:47 11:10:47 [facility] 2017-11-15 2017-11-15 Outpatient [facility] [id number] [place] 10:18:06 10:18:06 [facility] 2017-11-09 2017-11-09 Outpatient [facility] [id number] [place] 00:00:00 00:00:00 [facility] [facility] 2017-11-06 2017-11-06 Outpatient [facility] [id number] [place] 13:58:09 13:58:09 [facility] 2017-10-31 2017-10-31 Outpatient [facility] [id number] [place] 13:33:17 13:33:17 [facility] 2017-10-30 2017-10-30 Outpatient [facility] [id number] [place] 00:00:00 00:00:00 [facility] 2017-10-24 2017-10-24 Outpatient [facility] [id number] [place] 10:29:02 10:29:02 [facility] 2017-10-16 2017-10-16 Outpatient [facility] [id number] [place] 09:15:12 09:15:12 [facility] 2017-10-10 2017-10-10 Outpatient [facility] [id number] [place] 10:30:06 10:30:06 [facility] 2017-10-03 2017-10-03 Outpatient [facility] [id number] [place] 09:56:25 09:56:25 [facility] 2017-09-25 2017-09-25 Outpatient [facility] [id number] [place] 09:52:12 09:52:12 [facility] 2017-09-25 2017-09-25 Outpatient [facility] [id number] [place] 08:48:46 08:48:46 [facility] 2017-09-24 2017-09-24 Outpatient [facility] [id number] [place] 00:00:00 00:00:00 [facility] 2017-09-21 2017-09-21 Outpatient [facility] [id number] [place] 00:00:00 00:00:00 [facility] 2017-09-20 2017-09-20 Outpatient [facility] [id number] [place] 08:57:35 08:57:35 [facility] 2017-09-18 2017-09-18 Outpatient [facility] [id number] [place] 09:51:00 09:51:00 [facility] 2017-09-06 2017-09-06 Outpatient [facility] [id number] [place] 10:02:53 10:02:53 [facility] 2017-08-29 2017-08-29 Outpatient [facility] [id number] [place] 09:55:24 09:55:24 [facility] 2017-08-28 2017-08-28 Outpatient [facility] [id number] [place] 00:00:00 00:00:00 [facility] 2017-08-20 2017-08-20 Outpatient [facility] [id number] [place] 00:00:00 00:00:00 [facility] 2017-08-16 2017-08-16 Outpatient [facility] [id number] [place] 09:58:55 09:58:55 [facility] 2017-08-08 2017-08-08 Outpatient [facility] [id number] [place] 09:19:25 09:19:25 [facility] 2017-07-26 2017-07-26 Outpatient [facility] [id number] [place] 16:42:54 16:42:54 [facility] 2017-07-26 2017-07-26 Outpatient [facility] [id number] [place] 12:29:55 12:29:55 [facility] 2017-07-17 2017-07-17 Outpatient [facility] [id number] [place] 00:00:00 00:00:00 [facility] 2017-07-10 2017-07-10 Outpatient [facility] [id number] [place] 14:41:06 14:41:06 [facility] 2017-07-10 2017-07-10 Outpatient [facility] [id number] [place] 09:01:49 09:01:49 [facility] 2017-06-29 2017-06-29 Outpatient [facility] [id number] [place] 09:03:53 09:03:53 [facility] 2017-06-25 2017-06-25 Outpatient [facility] [id number] [place] 09:36:46 09:36:46 [facility] 2017-06-25 2017-06-25 Outpatient [facility] [id number] [place] 00:00:00 00:00:00 [facility] 2017-06-14 2017-06-14 Outpatient [facility] [id number] [place] 10:30:49 10:30:49 [facility] 2017-05-31 2017-05-31 Outpatient [facility] [id number] [place] 10:24:45 10:24:45 [facility] 2017 2017 Outpatient [facility] [id number] [place] 08:18:32 08:18:32 [facility] 2017-05-18 2017-05-18 Outpatient [facility] [id number] [place] 10:14:10 10:14:10 [facility] 2017-05-14 2017-05-14 Outpatient [facility] [id number] [place] 09:31:53 09:31:53 [facility] 2017-05-14 2017-05-14 Outpatient [facility] [id number] [place] 08:37:02 08:37:02 [facility] 2017-05-08 2017-05-08 Outpatient [facility] [id number] [place] 09:08:39 09:08:39 [facility] 2017-05-07 2017-05-07 Outpatient [facility] [id number] [place] 00:00:00 00:00:00 [facility] 2017-05-03 2017-05-03 Outpatient [facility] [id number] [place] 00:00:00 00:00:00 [facility] 2017-04-25 2017-04-25 Outpatient [facility] [id number] [place] 15:46:45 15:46:45 [facility] 2017-04-24 2017-04-24 Outpatient [facility] [id number] [place] 11:17:00 11:17:00 Health 2017-04-20 2017-04-20 Outpatient [facility] [id number] [place] 00:00:00 00:00:00 [facility] 2017-04-11 2017-04-11 Outpatient [facility] [id number] [place] 14:16:05 14:16:05 Health 2017-04-11 2017-04-[address] [facility] [id number] [place] 06:45:00 06:45:00 [facility] 2017-04-11 2017-04-11 Outpatient [facility] [id number] [place] 00:00:00 00:00:00 [facility] 2017-04-09 2017-04-09 Outpatient [facility] [id number] [place] 09:31:03 09:31:03 [facility] 2017-04-06 2017-04-06 Outpatient [facility] [id number] [place] 09:23:03 09:23:03 [facility] 2017-04-06 2017-04-06 Outpatient [facility] [id number] [place] 08:12:49 08:12:49 Health 2017-04-06 2017-04-06 Outpatient [facility] [id number] [place] 00:00:00 00:00:00 [facility] 2017-04-05 2017-04-05 Outpatient [facility] [id number] [place] 12:30:37 12:30:37 Health Results Test Description Test Time Test Comments Results Result Comments Source CBC WITH DIFF 2022-02-13 18:47:11 Test Item Value Reference Range Interpretation Comme nts WBC (test code = 6690-2) See_Comment [A utomated message] The system which generated this result transmitted ref erence range: 4.30 - 11.10 10*3/?L . The reference range was not u sed to interpret this result as normal/abnormal. RBC (test code = 789-8) See_Comment [Au tomated message] The system which generated this result transmitted ref erence range: 3.93 - 5.25 10*6/?L. The reference range was not u sed to interpret this result as normal/abnormal. HGB (test code = 718-7) 12.8 g/dL 11.6-15 HCT (test code = 4544-3) 39.8 % 35.7-45.2 MCV (test code = 787-2) 90.0 fL 80.6-95.5 MCH (test code = 785-6) 29.0 pg 25.9-32.8 MCHC (test code = 786-4) 32.2 g/dL 31.6-35.1 RDW-SD (test code = 41.1 fL 39-49.9 77574-6) RDW-CV (test code = 12.4 % 12-15.5 788-0) PLT (test code = 777-3) See_Comment [Au tomated message] The system which generated this result transmitted ref erence range: 166 - 358 10*3/?L. The reference range was not u sed to interpret this result as normal/abnormal. MPV (test code = 77316-9) 9.7 fL 9.5-12.9 NRBC/100 WBC (test code = See_Comment [ Automated message] The system [id number]) which generated this result transmitted ref erence range: 0.0 - 10.0 /100 WBC s. The reference range was not u sed to interpret this result as normal/abnormal. NRBC x10^3 (test code = See_Comment [Au tomated message] The system [id number]) which generated this result transmitted ref erence range: 10*3/?L. The re ference range was not used to int erpret this result as normal/abnor mal. GRAN MAT (NEUT) % (test 60.2 % code = 770-8) IMM GRAN % (test code = 0.20 % [id number]) LYMPH % (test code = 28.8 % 736-9) MONO % (test code = 6.6 % 5905-5) EOS % (test code = 713-8) 3.6 % BASO % (test code = 0.6 % 706-2) GRAN MAT x10^3(ANC) (test 3.17 10*3/uL 1.88-7.09 code = [id number]) IMM GRAN x10^3 (test code 0-0.06 = [id number]) LYMPH x10^3 (test code = 1.52 10*3/uL 1.32-3.29 731-0) MONO x10^3 (test code = 0.35 10*3/uL 0.33-0.92 742-7) EOS x10^3 (test code = 0.19 10*3/uL 0.03-0.39 711-2) BASO x10^3 (test code = 0.03 10*3/uL 0.01-0.07 704-7) [facility] URINALYSIS [id number] 00:00:00 Test Item Value Reference Range Interpretation Comments COLOR UA (test code = 5778-6) Yellow YELLOW/STRAW CLARITY UA (test code = 58048-6) Clear CLEAR GLUCOSE UA (test code = 5792-7) Negative NEGATIVE BILIRUBIN UA (test code = 5770-3) Negative NEGATIVE KETONES UA (test code = 48998-0) Negative NEGATIVE SPECIFIC GRAVITY UA (test code = 1.005-1.035 5811-5) BLOOD UA (test code = 5794-3) Large 3+ NEGATIVE PH UA (test code = 5803-2) 5-9 PROTEIN UA (test code = 5804-0) Negative NEGATIVE UROBILINOGEN UA (test code = 0.02 E.U/DL NORMAL MG/DL 5818-0) LEUKOCYTE ESTERASE UA (test code Negative NEGATIVE = 5799-2) NITRITE UA (test code = 5802-4) Negative NEGATIVE REDUCING SUBSTANCES URINE (test code = 06658-1) [facility] [id number] 13:16:10Surgical Pathology Report Case: [id number] Authorizing Provider: Gonzalo Pierson MD Collected: 05/31/2021 10:44 AM Ordering Location: [facility] Received: 05/31/2021 11:42 AM SERVICES Pathologist: Gray Yen MD Specimens: A) - Parathyroid, Left Upper Parathyroid B) - Parathyroid, Left Lower Parathyroid C) - Parathyroid, Right Lower Parathyroid D) - Parathyroid, Right Superior P arathyroid Biopsy PART A LEFT UPPER PARATHYROID, EXCISION:NORMOCELLULAR PARATHYROID.PART B LEFT LOWER PARATHYROID, EXCISION:MILDLY HYPERCELLULAR PARATHYROID.PART C RIGHT LOWER PARATHYROID, EXCISION:BENIGN FIBROADIPOSE AND VASCULAR TISSUE.NO PARATHYROID IDENTIFIED.PART D RIGHT SUPERIOR PARATHYROID, BIOPSY:NORMOCELLULAR PARATHYROID. Signing Pathologist Direct Phone Line: [phone] signed by Gray Yen MD on 06/02/2021 at 1:16 [id number], primaryA. Parathyroid, left upperB. Parathyroid, left lowerC. Parathyroid, right lowerD. Parathyroid, right superiorA. Received fresh labeled with the patient's name, medical record number and "LT up PT" is a 0.14 g, 0.8 x 0.5 x 0.3 cm pink soft tissue submitted in toto in A1.B. Received fresh labeled with the patient's name, medical record number and "LT lower PT" is a 0.1 g, 0.8 x 0.5 x 0.3 cm pink soft tissue submi tted in toto in B1.C. Received fresh labeled with the patient's name, medical record number and "RT lower PT" is a 0.11 g, 0.8 x 0.4 x 0.3 cm pink soft tissue submitted in toto in C1.D. Received fresh labeled with the patient's name, medical record number and "RT sup PT" are 3 torres soft tissue fragments each measuring 0.1 cm which are submitted in toto in D1. GALE Van, PA ([facility])ac[facility] hospitaler[facility], Department of Pathology, [address] [place] [address], [facility], Department of [facility]ology, [address] [place] [address], [facility], [facility] of [facility], [address] [place] [address], KLY, [id number] 12:25:22 Test Item Value Reference Range Interpretation Comments PARATHYROID HORMONE INTACT 10.7 pg/mL 8.5-72.5 (BEAKER) (test code = 577) Property Preservation Specialist ID - PIAYA LPTH, [id number] 11:24:05 Test Item Value Reference Range Interpretation Comments PARATHYROID HORMONE INTACT 67.0 pg/mL 8.5-72.5 (BEAKER) (test code = 577) Property Preservation Specialist ID - PITIM LPTH, [id number] 11:23:43 Test Item Value Reference Range Interpretation Comments PARATHYROID HORMONE INTACT 78.7 pg/mL 8.5-72.5 H (BEAKER) (test code = 577) Property Preservation Specialist ID Lee DANIELLE ESCOBARTH, [id number] 11:11:01 Test Item Value Reference Range Interpretation Comments PARATHYROID HORMONE INTACT 100.3 pg/mL 8.5-72.5 H (BEAKER) (test code = 577) Property Preservation Specialist ID Lee DANIELLE ESCOBARNARAYAN, [id number] 11:07:18 Test Item Value Reference Range Interpretation Comments PARATHYROID HORMONE INTACT 124.4 pg/mL 8.5-72.5 H (BEAKER) (test code = 577) Property Preservation Specialist ID Lee DANIELLE ESCOBARTH, [id number] 10:46:17 Test Item Value Reference Range Interpretation Comments PARATHYROID HORMONE INTACT 146.9 pg/mL 8.5-72.5 H (BEAKER) (test code = 577) Property Preservation Specialist ALICIA Ulrich
[2022-08-01] MEDS ORDERED: DIAZEPAM 5 MG TABLET ONE (11:20)
[2022-08-01] MEDS ORDERED: HYDROCODONE/APAP 5/325 MG TAB ONE (11:21)
[2022-08-01 11:56] LABS: Absolute Lymphocytes (CBC) 1.3 K/uL (0.7-4.9); Hematocrit 35.2 % (36.0-45.0); Lymphocytes % 18.8 % (15.3-44.8); MCV 85.4 fL (80-100); MPV 7.6 fL (7.6-11.3); RBC Red Blood Cell Count 4.12 M/uL (3.86-4.86)
--- NOTE | 2022-08-01 11:59 | RAD REPORT ---
EXAM DESCRIPTION: MRI - Lumbar Spine Wo [place] - 08/01/2022 11:16 am CLINICAL HISTORY: urinary incontinence, low back pain radiating to both legs COMPARISON: None available TECHNIQUE: Multiplanar multisequence MRI of the lumbar spine performed, without intravenous gadolini um contrast. FINDINGS: Preserved lumbar lordosis, with grade 1 anterolisthesis of L4 over L5, not exceeding 3 mil limeter. Vertebral body heights are well maintained. No suspicious marrow signal. No paraspinal mass es or edema. Schmorl's node formation along the right aspect of L4 vertebral body with endplate ir regularity. Conus terminates at the appropriate level. Cauda equina roots are unremarkable, with no clumping or t hickening. T12-L1: Broad-based disc bulge. No central canal stenosis or neural foraminal narrowing. L1-L2: Broad-based disc bulge with small superimposed central disc protrusion. No central canal steno sis or neural foraminal narrowing. L2-L3: Mild broad-based disc bulge. No significant canal stenosis or neural foraminal narrowing. Up t o moderate bilateral facet arthropathy. L3-L4 level: Broad-based disc bulge. No significant canal stenosis or neural foraminal narrowing. Mod erate bilateral facet arthropathy. L4-L5 level: Broad-based disc bulge and mild superior disc surface uncovering. No significant central canal stenosis. Advanced bilateral facet arthropathy with bilateral facet effusions. Mild bilateral neural foraminal narrowing. L5-S1 level: No significant disc herniation or canal stenosis. Duplication of the exiting right L5 ne rve roots. No significant neural foraminal narrowing. Moderate bilateral facet arthropathy with trace left effusion. IMPRESSION: No acute abnormalities of the lumbar spine. Multilevel spondylitic changes as above, with grade 1 anterolisthesis of L4 over L5, at which level a dvanced facet arthropathy with bilateral effusions are noted. Mild bilateral neural foraminal narrowi ng noted at that level. No central canal stenosis.
[2022-08-01 12:10] LABS: Potassium 3.6 mmol/L (3.5-5.1)
[2022-08-01 12:12] LABS: Urine Blood 2+ (Negative); Urine Glucose Negative (Negative); Urine Protein Negative (Negative); Urine Specific Gravity <=1.005 (1.005-1.030); Urine pH 5.5 (5.0-7.0)
[2022-08-01 12:15] LABS: Specific Gravity 1.008 (1.005-1.030); Urine Bacteria None Seen /HPF (<20); Urine Bilirubin NEGATIVE (Negative); Urine Blood 2+ (Negative); Urine Clarity Clear (Clear); Urine Color Colorless (Yellow); Urine Glucose NEGATIVE (Negative); Urine Mucus Slight /HPF (None Seen); Urine Protein NEGATIVE (Negative); Urine RBC <5 /HPF (None Seen); Urine Urobilinogen Normal (Normal); Urine pH 5.5 (5.0-7.0)
--- NOTE | 2022-08-01 12:37 | ER ---
Nurse's Notes [facility] [place] Name: Rafael Oglesby Age: 67 yrs Sex: Female : 1955 Arrival Date: 08/01/2022 Time: 09:59 Bed 18 Private MD: Diagnosis: Low back pain;Hematuria, unspecified;Unspecified urinary incontinence Presentation: 08/01 10:22 Chief complaint: Patient states: lower back pain x 5 days with bowel incontinence. vg1 Coronavirus screen: Vaccine status: Patient reports receiving the 2nd dose of the covid vaccine. Client denies travel out of the [place] in the last 14 days. Ebola Screen: Patient negative for fever greater than or equal to 101.5 degrees Fahrenheit, and additional compatible Ebola Virus Disease symptoms Patient denies exposure to infectious person. Initial Sepsis Screen: Does the patient meet any 2 criteria? No. Patient's initial sepsis screen is negative. Does the patient have a suspected source of infection? No. Patient's initial sepsis screen is negative. Risk Assessment: Do you want to hurt yourself or someone else? Patient reports no desire to harm self or others. Onset of symptoms was July 27, 2022. 10:22 Method Of Arrival: Ambulatory vg1 10:22 Acuity: LIDA 3 vg1 Triage Assessment: 10:28 General: Appears uncomfortable, Behavior is calm, cooperative. Pain: Complains of pain vg1 in back Pain currently is 7 out of 10 on a pain scale. GI: Abdomen is flat, non-distended, Reports incontinence, Patient currently denies nausea, vomiting. Musculoskeletal: Circulation, motion, and sensation intact. Historical: - Allergies: 10:26 Fosamax; vg1 10:26 hydroxycholoroquine; vg1 - PMHx: 10:26 Arthritis; Osteoporosis; vg1 10:28 Parathyroid; vg1 - PSHx: 10:26 Femur; vg1 - Immunization history:: Adult Immunizations up to date. - Social history:: Smoking status: Patient denies any tobacco usage or history of. Screenin:29 [facility] ED Fall Risk Assessment (Adult) History of falling in the last 3 months, vg1 including since admission No falls in past 3 months (0 pts) Confusion or Disorientation No (0 pts) Intoxicated or Sedated No (0 pts) Impaired Gait No (0 pts) Mobility Assist Device Used No (0 pt) Altered Elimination No (0 pt) Score/Fall Risk Level 0 - 2 = Low Risk Oriented to surroundings, Maintained a safe environment, Educated pt \T\ family on fall prevention, incl call for assistance when getting out of bed, Assessed \T\ reinforced patient's understanding of fall precautions. Abuse screen: Denies threats or abuse. Denies injuries from another. Nutritional screening: No deficits noted. Tuberculosis screening: No symptoms or risk factors identified. Assessment: 11:30 General: Appears in no apparent distress. Behavior is calm, cooperative, appropriate ko1 for age. Pain: Complains of pain in right quadriceps and back. Neuro: No deficits noted. Neuro: Reports back pain and right leg pain. Cardiovascular: No deficits noted. Respiratory: No deficits noted. GI: No deficits noted. : No deficits noted. EENT: No deficits noted. Derm: No deficits noted. Musculoskeletal: No deficits noted. Vital Signs: 10:22 BP 142 / 71; Pulse 69; Resp 16; Temp 97.9(TE); Pulse Ox 99% on R/A; Weight 67.13 kg; vg1 Height 5 ft. 3 in. (160.02 cm); Pain 7/10; 11:30 BP 131 / 64; Pulse 72; Resp 18; Pulse Ox 99% ; ko1 10:22 Body Mass Index 26.22 (67.13 kg, 160.02 cm) vg1 ED Course: 09:59 Patient arrived in ED. mr 10:02 Felipe Mejía DO is Attending Physician. ms3 10:26 Triage completed. vg1 10:28 Arm band placed on. vg1 11:02 Nina Carrillo, ENRIQUE is Primary Nurse. ko1 11:08 MRI Lumbar Spine wo Con In Process Unspecified. EDMS 11:30 Patient has correct armband on for positive identification. Bed in low position. Call ko1 light in reach. Side rails up X 1. Pulse ox on. NIBP on. 11:30 No provider procedures requiring assistance completed. IV discontinued, intact, ko1 bleeding controlled, No redness/swelling at site. Pressure dressing applied. 11:42 Inserted saline lock: 22 gauge in left antecubital area, using aseptic technique. Blood ko1 collected. 12:34 Ignacio Hoffman MD is Referral Physician. ms3 Administered Medications: 11:35 Drug: Valium (diazepam) 5 mg Route: PO; ko1 11:38 Not Given (Patient Refused): HYDROcodone-acetaminophen 5 mg-325 mg 1 tabs PO once ko1 Medication: 11:30 VIS not applicable for this client. ko1 Outcome: 12:36 Discharge ordered by . ms3 12:54 Discharged to home ambulatory. ko1 12:54 Condition: stable 12:54 Discharge instructions given to patient, Instructed on discharge instructions, follow up and referral plans. Demonstrated understanding of instructions, follow-up care. 12:54 Patient left the ED. ko1 Signatures: Dispatcher [employer] EDMS Jayne Laguerre mr Mariaa Desir, RN RN vg1 Felipe Mejía DO DO ms3 Nina Carrillo, ENRIQUE RN ko1 Corrections: (The following items were deleted from the chart) 11:37 11:35 HYDROcodone-acetaminophen 5 mg-325 mg 1 tabs PO ko1 ko1
--- NOTE | 2022-08-01 12:37 | EDPHYS ---
Physician Documentation [facility] Name: Rafael Oglesby Age: 67 yrs Sex: Female : 1955 Arrival Date: 08/01/2022 Time: 09:59 Bed 18 Private MD: ED Physician Felipe Mejía HPI: 08/01 10:54 This 67 yrs old Female presents to ER via Ambulatory with complaints of Back Pain, Leg ms3 Pain. 10:54 67-year-old female with past medical history of psoriatic arthritis, osteoporosis, ms3 parathyroid disorder, presents for right lower back pain that has been ongoing for 6 days. Patient states that began began as a tight sensation. Patient states the pain radiates down her right leg. Patient rates the pain as 6/10. Patient states she developed incontinence with her back pain. Patient denies fevers, chills, numbness.. Historical: - Allergies: 10:26 Fosamax; vg1 10:26 hydroxycholoroquine; vg1 - PMHx: 10:26 Arthritis; Osteoporosis; vg1 10:28 Parathyroid; vg1 - PSHx: 10:26 Femur; vg1 - Immunization history:: Adult Immunizations up to date. - Social history:: Smoking status: Patient denies any tobacco usage or history of. ROS: 10:54 Constitutional: Negative for fever, and chills. ENT: Negative for injury, pain, and ms3 discharge, Neck: Negative for injury, pain, and swelling, Cardiovascular: Negative for chest pain, and palpitations. Respiratory: Negative for shortness of breath, cough, wheezing, and pleuritic chest pain, Abdomen/GI: Negative for abdominal pain, nausea, vomiting, diarrhea, and constipation. 10:54 Back: Positive for pain at rest, pain with movement. 10:54 : Positive for bladder incontinence Negative for urinary symptoms, urinary frequency, hematuria, burning with urination. 10:54 All other systems are negative. Exam: 10:54 Constitutional: This is a well developed, well nourished patient who is awake, alert, ms3 and in no acute distress. Head/Face: Normocephalic, atraumatic. Chest/axilla: Normal chest wall appearance and motion. Nontender with no deformity. Cardiovascular: Regular rate and rhythm with a normal S1 and S2. No gallops, murmurs, or rubs. Normal PMI, no JVD. No pulse deficits. Respiratory: Lungs have equal breath sounds bilaterally, clear to auscultation and percussion. No rales, rhonchi or wheezes noted. No increased work of breathing, no retractions or nasal flaring. Abdomen/GI: Soft, non-tender, with normal bowel sounds. No distension or tympany. No guarding or rebound. No evidence of tenderness throughout. Skin: Warm, dry with normal turgor. Normal color with no rashes, no lesions, and no evidence of cellulitis. MS/ Extremity: Pulses equal, no cyanosis. Neurovascular intact. Full, normal range of motion. 10:54 Neuro: Orientation: is normal, Mentation: is normal, Memory: is normal, Cranial nerves: CN I not tested, CN II- XII are normal as tested, Cerebellar function: is grossly normal, Motor: is normal, moves all fours, strength is 5/5 in all extremities, Sensation: is normal, no obvious gross deficits, Gait: ataxic. Vital Signs: 10:22 BP 142 / 71; Pulse 69; Resp 16; Temp 97.9(TE); Pulse Ox 99% on R/A; Weight 67.13 kg; vg1 Height 5 ft. 3 in. (160.02 cm); Pain 7/10; 11:30 BP 131 / 64; Pulse 72; Resp 18; Pulse Ox 99% ; ko1 10:22 Body Mass Index 26.22 (67.13 kg, 160.02 cm) vg1 MDM: 10:36 Patient medically screened. ms3 10:54 Differential diagnosis: Osteoarthritis spinal injury, Cauda equina. ms3 13:44 Data reviewed: vital signs, nurses notes, lab test result(s), radiologic studies, MRI. ms3 I considered the following discharge prescriptions or medication management in the emergency department Medications were administered in the Emergency Department. See MAR. Counseling: I had a detailed discussion with the patient and/or guardian regarding: the historical points, exam findings, and any diagnostic results supporting the discharge/admit diagnosis, lab results, radiology results, the need for outpatient follow up, to return to the emergency department if symptoms worsen or persist or if there are any questions or concerns that arise at home. ED course: Discussed MRI and lab results with patient. Patient states she typically has hematuria as she has stones in bilateral kidneys. Patient states pain currently is not kidney stone pain and declines CT abdomen pelvis at this time. Patient to follow-up with Dr. Hoffman and Dr. Villa as discussed. All questions were answered. Return precautions discussed include worsening symptoms, or any other concerns. On reevaluation patient is alert and oriented x4, no apparent distress, nontoxic, ambulatory in emergency department, speaking full sentences. 08/01 10:25 Order name: CBC with Diff; Complete Time: 12:15 ms3 08/01 10:25 Order name: BMP; Complete Time: 12:15 ms3 08/01 10:25 Order name: Urine Dipstick-Ancillary (obtain specimen) ms3 08/01 10:25 Order name: Urinalysis W/Microscopic; Complete Time: 12:25 ms3 08/01 10:25 Order name: MRI Lumbar Spine wo Con; Complete Time: 12:15 ms3 08/01 12:12 Order name: Urine Dipstick-Ancillary; Complete Time: 12:15 EDMS Administered Medications: 11:35 Drug: Valium (diazepam) 5 mg Route: PO; ko1 11:38 Not Given (Patient Refused): HYDROcodone-acetaminophen 5 mg-325 mg 1 tabs PO once ko1 Disposition Summary: 08/01/22 12:36 Discharge Ordered Location: Home ms3 Condition: Stable ms3 Diagnosis - Low back pain ms3 - Hematuria, unspecified ms3 - Unspecified urinary incontinence ms3 Followup: ms3 - With: Ignacio Hoffman MD - When: 2 - 3 days - Reason: Recheck today's complaints Discharge Instructions: - Discharge Summary Sheet ms3 - Acute Back Pain, Adult ms3 Forms: - Medication Reconciliation Form ms3 - Thank You Letter ms3 - Antibiotic Education ms3 - Prescription Opioid Use ms3 Signatures: Dispatcher [employer] EDMS Mariaa Desir, RN RN vg1 Feliep Mejía DO DO ms3 Nina Carrillo, RN RN ko1
== END 2022-08-01 12:54 | disposition home or self-care (01) ==
LOC: ER 09:55
DX: M54.50 Low back pain, unspecified (principal); R31.9 Hematuria, unspecified; R32 Unspecified urinary incontinence; Z88.8 Allergy status to other drugs, medicaments and biological substances
CPT/HCPCS: 36415; 72148; 80048; 81001; 81003; 85025; 99284